=== PATIENT | female | born 1945 | race Caucasian/White ===

== ENCOUNTER → 2019-09-12 09:26 | Outpatient (BNVA) | payer MEDICARE, OTHER, SELFPAY | PROVIDERS: Family Provider Internal Medicine; PCP Internal Medicine; Visit Provider Specialist | DX: M79.641 Pain in right hand (principal); M18.9 Osteoarthritis of first carpometacarpal joint, unspecified; S52.502A Unspecified fracture of the lower end of left radius, initial encounter for closed fracture; X58.XXXA Exposure to other specified factors, initial encounter | CPT/HCPCS: 73130 ==

== ENCOUNTER 2019-09-12 16:22 | Outpatient (CLI) | payer MEDICARE, OTHER, SELFPAY | END 2019-09-12 16:23 | disposition home or self-care (01) | LOC: SPT 16:23 | PROVIDERS: Family Provider Internal Medicine; PCP Internal Medicine; Visit Provider Specialist | DX: M18.0 Bilateral primary osteoarthritis of first carpometacarpal joints (principal) | CPT/HCPCS: L3924 ==

== ENCOUNTER 2019-09-12 18:12 | Emergency (ER) | payer MEDICARE, OTHER, SELFPAY ==
[2019-09-12 18:17] VITALS: BP 135/85; PULSE 90; RESP 16; TEMP 36.6; O2SAT 95; BMI 25.9
--- NOTE | 2019-09-12 18:31 | XR_ITS ---
WS: [id number] Left wrist, 3 views, 09/12/2019, 1915 hours. Clinical Data: injury Comparison: Left wrist 3 views, 09/12/2019, 0935 hours. Findings: There is a fracture of the radial styloid, and no displacement is seen. No distal ulnar fracture is n oted. The carpal bones and metacarpals remain intact. Calcification in the hernández of the small arterie s again is seen. XR/XR wrist LT min 3V* [id number] Impression: Fracture of the left distal radius.
--- NOTE | 2019-09-12 19:46 | ED_ITS ---
HPI - Extremity Problem General: Chief complaint: Extremity Injury, Upper Stated complaint: Arm pain Time Seen by Provider: 09/12/19 19:26 History of Present Illness: HPI Narrative: Patient complains about left wrist pain after a fall about 1 hour ago. Tripped MD Complaint: extremity pain and extremity swelling Onset (ago): hour(s) Pain Consistency: constant Location: left and other (Wrist) Severity scale (1-10): 5 Associated symptoms: Deny chest pain, fever(s) or rash Review of Systems Const: Denies: fever, chills or body aches Eyes: Denies: change in vision or blurry vision ENMT: Denies: throat pain or nasal congestion Card: Denies: chest pain or shortness of breath on exertion Resp: Denies: shortness of breath, productive cough or non-productive cough GI: Denies: abdominal pain, nausea or vomiting Musc: Reports: extremity pain (Left wrist) and extremity swelling Skin/Breast: Denies: rash Neuro: Denies: headache Psych: Denies: anxiety or depression Robert/Lymph: Denies: easy bruising PFSH ED PFSH: Statuses (acute, chronic, etc) shown below reflect problem list status as previously entered and may not be historically accurate Social History (Updated 09/12/19 @ 09:47 by Mily Cali LPN) Smoking and tobacco status: never smoked Alcohol intake: former Physical Exam Const: COMMON NORMALS: no apparent distress, average body habitus and oriented x3 HENMT: COMMON NORMALS: normocephalic HEAD & SCALP: normal to inspection and normocephalic FACE & SINUS: normal facial exam Eye: COMMON NORMALS: conjunctivae normal GENERAL EYE: normal appearance of both eyes CONJUNCTIVA: Yes conjunctivae normal Neck/C-Spine: COMMON NORMALS: no JVD Chest: COMMONS NORMALS: inspection of chest normal Resp: COMMON NORMALS: normal respiratory effort and clear to auscultation bilaterally AUSCULTATION: clear to auscultation bilaterally Cardio: COMMON NORMALS: no JVD, regular rate and regular rhythm RATE: regular rate RHYTHM: regular rhythm GI: COMMON NORMALS: normal to inspection, nondistended, normoactive bowel so unds Extremity: COMMON NORMALS: normal to inspection and full ROM LEFT UPPER EXTREMITY: Yes wrist (Pain and swelling to left wrist radial site. Neurovascular intact.) Left wrist: Yes inspection EXTREMITY IMAGE (FRONT): 1. pain and swelling Neuro: COMMON NORMALS: oriented x3 Course Vital Signs: Vital signs: Vital Signs Temperature 97.9 F 09/12/19 18:17 Pulse Rate 90 09/12/19 18:17 Respiratory Rate 16 09/12/19 18:17 Blood Pressure 135/85 09/12/19 18:17 Pulse Oximetry 95 09/12/19 18:17 Discharge Plan Discharge Patient Disposition: Home, Self-Care Clinical Impression: Fracture of wrist Condition: Stable Prescriptions: No Action Trulicity 0.75 mg/0.5 mL pen injector 0.75 mg SUBCUT ONCE RF: 0 atorvastatin [Lipitor] 80 mg tablet 80 mg PO ONCE RF: 0 aspirin [Adult Aspirin Regimen] 81 mg tablet,delayed release (DR/EC) 81 mg PO ONCE RF: 0 amlodipine 10 mg tablet 10 mg PO ONCE RF: 0 hydrochlorothiazide 25 mg tablet 25 mg PO QAM RF: 0 clopidogrel [Plavix] 75 mg tablet 75 mg PO ONCE RF: 0 levothyroxine [Synthroid] 125 mcg tablet 125 mcg PO ONCE RF: 0 metformin 500 mg tablet 500 mg PO BID RF: 0 Humulin 70/30 U-100 Insulin 100 unit/mL (70-30) suspension See Rx Instructions SUBCUT QAM RF: 0 isosorbide mononitrate 30 mg tablet extended release 24 hr 30 mg PO QAM RF: 0 Lumigan 0.01 % drops 1 drop ophthalmic (eye) ONCE RF: 0 pantoprazole 20 mg tablet,delayed release (DR/EC) 20 mg PO ONCE RF: 0 ranitidine HCl [Zantac] 150 mg tablet 150 mg PO BID RF: 0 tramadol 50 mg tablet 50 mg PO BID PRNRF: 0 (DME) CMC BRACES Qty: 1 RF: 0 Referrals: Isis Villasenor MD [Primary Care Provider] - Coding Level of Care Code ED Locker Room Manager for Cholo Ruelas
[2019-09-12 19:52] VITALS: PULSE 88
[2019-09-12 20:14] VITALS: BP 142/71; PULSE 84; RESP 16; O2SAT 98
--- NOTE | 2019-09-13 11:07 | DCPLANNER ---
senior benefits manager had message to schedule a follow up appointment for patient with ortho. senior benefits manager called the ortho clinic, spoke with Pat, gave clinic patients information. senior benefits manager was told that patients information would be printed and reviewed. Clinic will call patient case coordinator and patient with appointment information.
--- NOTE | 2019-09-14 12:29 | DCPLANNER ---
Appointment was scheduled for 09.14.[address] Gomes, patient attended appointment.
== END 2019-09-12 20:16 | disposition home or self-care (01) ==
PROVIDERS: Emergency Provider Nurse Practitioner Family; Family Provider Internal Medicine; PCP Internal Medicine
DX: S52.515A Nondisplaced fracture of left radial styloid process, initial encounter for closed fracture (principal); W19.XXXA Unspecified fall, initial encounter; Z79.4 Long term (current) use of insulin; Z79.02 Long term (current) use of antithrombotics/antiplatelets; Z79.82 Long term (current) use of aspirin; M79.641 Pain in right hand; S52.502A Unspecified fracture of the lower end of left radius, initial encounter for closed fracture; X58.XXXA Exposure to other specified factors, initial encounter
CPT/HCPCS: 73110; 73130; 99281; L3924

== ENCOUNTER 2019-09-14 13:04 | Outpatient (CLI) | payer MEDICARE, OTHER, SELFPAY | END 2019-09-14 13:05 | disposition home or self-care (01) | LOC: SPT 13:04 | PROVIDERS: Family Provider Internal Medicine; PCP Internal Medicine; Visit Provider Specialist | DX: S52.501D Unspecified fracture of the lower end of right radius, subsequent encounter for closed fracture with routine healing (principal); X58.XXXD Exposure to other specified factors, subsequent encounter | CPT/HCPCS: L3982 ==

== ENCOUNTER → 2019-09-28 08:58 | Outpatient (BNVA) | payer MEDICARE, OTHER, SELFPAY | PROVIDERS: Family Provider Internal Medicine; PCP Internal Medicine; Visit Provider Specialist | DX: S52.501A Unspecified fracture of the lower end of right radius, initial encounter for closed fracture (principal); X58.XXXA Exposure to other specified factors, initial encounter | CPT/HCPCS: 73110 ==

== ENCOUNTER → 2019-10-12 08:15 | Outpatient (BNVA) | payer MEDICARE, OTHER, SELFPAY | PROVIDERS: Family Provider Internal Medicine; PCP Internal Medicine; Visit Provider Specialist | DX: S52.502A Unspecified fracture of the lower end of left radius, initial encounter for closed fracture (principal); X58.XXXA Exposure to other specified factors, initial encounter | CPT/HCPCS: 73110 ==

== ENCOUNTER 2019-10-25 11:59 | Outpatient (RCR) | payer MEDICARE, OTHER, SELFPAY | END 2019-10-29 23:59 | disposition home or self-care (01) | LOC: SOT 11:59 | PROVIDERS: Family Provider Internal Medicine; PCP Internal Medicine; Referring Provider Specialist; Visit Provider Specialist | DX: S52.502D Unspecified fracture of the lower end of left radius, subsequent encounter for closed fracture with routine healing (principal); X58.XXXD Exposure to other specified factors, subsequent encounter | CPT/HCPCS: 97110; 97165 ==

== ENCOUNTER 2019-10-30 06:00 | Outpatient (RCR) | payer MEDICARE, OTHER, SELFPAY | END 2019-11-10 23:00 | disposition home or self-care (01) | LOC: SOT 06:00 | PROVIDERS: Family Provider Internal Medicine; PCP Internal Medicine; Referring Provider Specialist; Visit Provider Specialist | DX: S52.502D Unspecified fracture of the lower end of left radius, subsequent encounter for closed fracture with routine healing (principal); X58.XXXD Exposure to other specified factors, subsequent encounter | CPT/HCPCS: 97018; 97035; 97110; 97530 ==

== ENCOUNTER 2019-11-02 08:18 | Outpatient (CLI) | payer MEDICARE, OTHER, SELFPAY | END 2019-11-02 08:19 | disposition home or self-care (01) | LOC: RADSHAW 14:40 | PROVIDERS: Family Provider Internal Medicine; PCP Internal Medicine; Visit Provider Specialist | DX: S52.501A Unspecified fracture of the lower end of right radius, initial encounter for closed fracture (principal); S52.502A Unspecified fracture of the lower end of left radius, initial encounter for closed fracture; X58.XXXA Exposure to other specified factors, initial encounter | CPT/HCPCS: 73110 ==

== ENCOUNTER → 2019-12-02 14:37 | Outpatient (BNVA) | payer MEDICARE, OTHER, SELFPAY | PROVIDERS: Family Provider Internal Medicine; PCP Internal Medicine; Visit Provider Nurse Practitioner Family | DX: S52.92XA Unspecified fracture of left forearm, initial encounter for closed fracture (principal); X58.XXXA Exposure to other specified factors, initial encounter | CPT/HCPCS: 73110 ==

== ENCOUNTER 2020-02-01 13:08 | Outpatient (CLI) | payer MEDICARE, OTHER, SELFPAY ==
--- NOTE | 2020-02-01 13:15 | MM_ITS ---
WS: [id number] BILATERAL SCREENING DIGITAL MAMMOGRAM WITH CAD HISTORY: SCREENING COMPARISON: 03/08/2018 and 12/10/2016 Bilateral CC and MLO views submitted. Computer aided detection analyzed. Breast composition: There are scattered areas of fibroglandular density. No suspicious masses, microc alcifications or architectural distortion. Extensive calcifications throughout both breasts which hav e been stable over multiple years. Extensive vascular calcifications also. MM/[place] [id number] IMPRESSION: BI-RADS: 2-Benign FOLLOW UP: 1 Year Follow-up
--- NOTE | 2020-02-01 13:46 | XR_ITS ---
WS: [id number] DEXA (DUAL ENERGY X-RAY ABSORPTIOMETRY) Bone mineral density was performed using a Veebox machine. HISTORY: ASYMPTOMATIC POSTMENOPAUSAL COMPARISON: None available. Lumbar spine BMD (L1-L4): 0.975 g/cm2 T score: -1.7 Z score: 0.2 Total hip BMD: Left: 0.671 g/cm2. T score: -2.7 Z score: -0.9 Right: 0.702 g/cm2. T score: -2.4 Z score: -0.6 10 year probability of a major osteoporotic fracture is 33%. XR/XR DEXA axial skeleton* [id number] IMPRESSION: OSTEOPOROSIS based upon the WHO classification for females.
== END 2020-02-01 13:09 | disposition home or self-care (01) ==
LOC: RADSHAW 13:11
PROVIDERS: PCP Internal Medicine; Visit Provider Internal Medicine
DX: Z12.31 Encounter for screening mammogram for malignant neoplasm of breast (principal); Z78.0 Asymptomatic menopausal state; M81.0 Age-related osteoporosis without current pathological fracture
CPT/HCPCS: 77067; 77080

== ENCOUNTER 2020-03-24 08:58 | Emergency (ER) | payer MEDICARE, OTHER, SELFPAY ==
[2020-03-24 09:05] VITALS: BP 167/87; PULSE 89; RESP 18; TEMP 36.8; O2SAT 97; BMI 26.4
--- NOTE | 2020-03-24 09:14 | XRR_ITS ---
PROCEDURE INFORMATION: Exam: XR Left Shoulder Exam date and time: 03/24/2020 9:32 AM Age: 74 years old Clinical indication: Injury or trauma; Fall; Initial encounter; Blunt trauma (contusions or hematomas; Shoulder; Left TECHNIQUE: Imaging protocol: XR Left shoulder. Views: 2 or more views. COMPARISON: No relevant prior studies available. FINDINGS: Bones/joints: Poststernotomy changes in the chest are partially visualized. No acute fracture. No dislocation. Bones are mildly osteopenic. No joint effusion. Lungs: Visualized lungs are clear. Vasculature: Vascular calcifications in the aorta. Soft tissues: No soft tissue swelling. No radiopaque foreign body. XR/XR shoulder LT min 2V* [id number] IMPRESSION: 1. No acute fracture. Followup imaging recommended in 7-14 days if clinical concern for fracture persists. 2. Incidental/nonacute findings are listed in the report.
--- NOTE | 2020-03-24 09:14 | XRR_ITS ---
PROCEDURE INFORMATION: Exam: XR Left Wrist Exam date and time: 03/24/2020 9:48 AM Age: 74 years old Clinical indication: Injury or trauma; Fall; Initial encounter; Blunt trauma (contusions or hematomas; Wrist; Left TECHNIQUE: Imaging protocol: XR Left wrist. Views: 3 or more views. COMPARISON: CR XR wrist LT min 3V* [id number] 12/02/2019 2:50 PM FINDINGS: Bones/joints: There is an old old mildly impacted fracture of the distal left radius. No acute fracture. No dislocation. Bones are diffusely osteopenic. Degenerative changes at the radiocarpal joint and 1st CMC joint. Osseous findings are stable. No acute fracture. Soft tissues: No soft tissue swelling. No radiopaque foreign body. Vasculature: Stable atherosclerotic calcifications in the visualized arteries. XR/XR wrist LT min 3V* [id number] IMPRESSION: 1. No acute fracture. Followup imaging recommended in 7-14 days if clinical concern for fracture persists. 2. Incidental/nonacute findings are listed in the report.
--- NOTE | 2020-03-24 09:14 | XRR_ITS ---
PROCEDURE INFORMATION: Exam: XR Right Wrist Exam date and time: 03/24/2020 9:46 AM Age: 74 years old Clinical indication: Injury or trauma; Fall; Initial encounter; Blunt trauma (contusions or hematomas; Wrist; Right TECHNIQUE: Imaging protocol: XR Right wrist. Views: 3 or more views. COMPARISON: CR XR hand RT min 3V* [id number] 09/12/2019 9:31 AM FINDINGS: Bones/joints: No acute fracture. No dislocation. Degenerative changes at the radiocarpal joint and the 1st CMC joint. Bones are diffusely osteopenic. Osseous findings are stable. Soft tissues: No soft tissue swelling. No radiopaque foreign body. Vasculature: Stable atherosclerotic calcifications in the visualized arteries. XR/XR wrist RT min 3V* [id number] IMPRESSION: 1. No acute fracture. Followup imaging recommended in 7-14 days if clinical concern for fracture persists. 2. Incidental/nonacute findings are listed in the report.
--- NOTE | 2020-03-24 09:14 | XRR_ITS ---
PROCEDURE INFORMATION: Exam: XR Left Elbow Exam date and time: 03/24/2020 9:32 AM Age: 74 years old Clinical indication: Injury or trauma; Fall; Initial encounter; Blunt trauma (contusions or hematomas; Elbow; Left TECHNIQUE: Imaging protocol: XR Left elbow. Views: 1 or 2 views. COMPARISON: No relevant prior studies available. FINDINGS: Bones/joints: No acute fracture. No dislocation. Bones are mildly osteopenic. No joint effusion. Soft tissues: No soft tissue swelling. No radiopaque foreign body. XR/XR elbow LT 2V [id number] IMPRESSION: 1. No acute fracture. Followup imaging recommended in 7-14 days if clinical concern for fracture persists. 2. Incidental/nonacute findings are listed in the report.
[2020-03-24 09:15] VITALS: BP 167/87; PULSE 84; RESP 16; O2SAT 95
--- NOTE | 2020-03-24 09:15 | XRR_ITS ---
PROCEDURE INFORMATION: Exam: XR Right Hand Exam date and time: 03/24/2020 9:36 AM Age: 74 years old Clinical indication: Injury or trauma; Fall; Initial encounter; Blunt trauma (contusions or hematomas; Hand; Right TECHNIQUE: Imaging protocol: XR Right hand. Views: 3 or more views. COMPARISON: CR XR hand RT min 3V* [id number] 09/12/2019 9:31 AM FINDINGS: Bones/joints: Degenerative changes at the radiocarpal joint, 1st CMC joint, and multiple interphalangeal joints. No acute fracture. No dislocation. Bones are diffusely osteopenic. Osseous findings are stable. Soft tissues: No soft tissue swelling. No radiopaque foreign body. Vasculature: Stable atherosclerotic calcifications in the visualized arteries. XR/XR hand RT min 3V* [id number] IMPRESSION: 1. No acute fracture. Followup imaging recommended in 7-14 days if clinical concern for fracture persists. 2. Incidental/nonacute findings are listed in the report.
--- NOTE | 2020-03-24 09:30 | PC.NURSE ---
XRs performed at bedside.
--- NOTE | 2020-03-24 09:55 | PC.NURSE ---
Volar splint applied to left wrist. Pt tolerated well.
--- NOTE | 2020-03-24 10:06 | W.ED.FALL ---
HPI - Fall General: Chief Complaint: Fall Stated Complaint: FALL Time Seen by Provider: 03/24/20 09:13 History of Present Illness: HPI Narrative: 74-year-old female who stumbled and fell she was using a cane going up some stairs she landed on outstretched hand she has bilateral wrist pain with some right elbow and shoulder pain. MD complaint: fall Onset (ago): day(s) (1) Fall from: standing Fall witnessed: no Place fall occurred: home Loss of consciousness: None Prolonged down time: no Symptoms prior to fall: none Context: tripped/slipped Location of injury - extremities: Left: shoulder and elbow and Bilateral: hand (wrist) Severity: moderate Quality: sharp Associated symptoms-after fall: Denies abdominal pain, chest pain, difficulty walking, headache(s), lightheadedness or neck pain Review of Systems Const: Denies: fever(s), chills, body aches, change in appetite, fatigue or malaise ENMT: Denies: throat pain, ear or mastoid pain, nasal discharge or nasal congestion Card: Denies: chest pain or lightheadedness Resp: Denies: dyspnea, productive cough or non-productive cough GI: Denies: abdominal pain : Denies: flank pain, difficulty voiding, dysuria, urinary frequency or urinary urgency Musc: Denies: neck pain Skin/Breast: Denies: rash or pruritus Neuro: Denies: headache(s) or difficulty walking PFS ED PFSH: Medical History Bilateral carotid artery stenosis CAD (coronary artery disease) Chronic kidney disease, stage 3 Diabetes mellitus Hypertension Leg pain, bilateral Mixed hyperlipidemia Osteoarthritis of knees, bilateral Osteoarthritis, chronic Peripheral vascular disease Surgical History H/O heart bypass surgery Family History Other CAD (coronary artery disease) Diabetes Social History Smoking and tobacco status: never smoked Alcohol intake: former Physical Exam Const: COMMON NORMALS: no acute distress GENERAL APPEARANCE: cooperative and comfortable ORIENTATION/CONSCIOUSNESS: Yes awake, Yes oriented to person, Yes oriented to place and Yes oriented to time HENMT: COMMON NORMALS: normocephalic, atraumatic, hearing grossly normal bilaterally, external ears normal, EAC's normal, TM's normal bilaterally, Normal nasal mucous membranes and turbinates present, moist oral mucous membranes and oropharynx normal HEAD & SCALP: normocephalic and atraumatic NOSE: Normal nasal mucous membranes and turbinates present EXTERNAL EAR: Yes external ears normal EXTERNAL AUDITORY CANAL: EAC's normal TYMPANIC MEMBRANE: TM's normal bilaterally Eye: COMMON NORMALS: Equal, round and reactive pupils present, EOMs intact bilaterally, conjunctivae normal and no scleral icterus CONJUNCTIVA: Yes conjunctivae normal PUPIL: Yes Equal, round and reactive pupils present Neck/C-Spine: COMMON NORMALS: full ROM, no lymphadenopathy, supple and no JVD Lymph: LYMPHATIC: no lymphadenopathy noted and no lymphedema noted Resp: COMMON NORMALS: normal respiratory effort, No retractions, No use of accessory muscles and clear to auscultation bilaterally AUSCULTATION: clear to auscultation bilaterally Cardio: COMMON NORMALS: no JVD, regular rate, regular rhythm and No murmurs present (Cardio) RATE: regular rate RHYTHM: regular rhythm GI: COMMON NORMALS: Soft to palpation and No hepatosplenomegaly present AUSCULTATION: Yes normoactive bowel sounds PALPATION: Yes Soft to palpation, No Tenderness to palpation present (GI), No Guarding due to palpation present (GI) and Yes No hepatosplenomegaly present Neuro: SENSORIUM/ORIENTATION: Yes oriented to person, Yes oriented to place and Yes oriented to time Skin: COMMON NORMALS: no rashes or lesions noted GENERAL SKIN EXAM: no rashes or lesions noted Course Vital Signs: Vital signs: Vital Signs Temperature 98.2 F 03/24/20 09:05 Pulse Rate 81 03/24/20 10:24 Respiratory Rate 17 03/24/20 10:24 Blood Pressure 147/86 03/24/20 10:24 Pulse Oximetry 95 03/24/20 10:24 MDM - Fall MDM Narrative: Medical decision making narrative: Left distal radial fracture. In the same area as the previous 1 but comparing the films to last August it does look different than the previous fracture. We will go ahead and put her in a volar splint and a sling pain medications and refer her to orthopedics. I do not see anything in the shoulder the navicular views of the left wrist or left elbow films. 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 Condition: Stable Prescriptions: No Action hydrochlorothiazide 25 mg tablet 25 mg PO QAM RF: 0 metformin 500 mg tablet 500 mg PO BID RF: 0 Humulin 70/30 U-100 Insulin 100 unit/mL (70-30) suspension See Rx Instructions SUBCUT QAM RF: 0 isosorbide mononitrate 30 mg tablet extended release 24 hr 30 mg PO QAM RF: 0 ranitidine HCl [Zantac] 150 mg tablet 150 mg PO BID RF: 0 tramadol 50 mg tablet 50 mg PO BID PRNRF: 0 (DME) [facility] BRACES Qty: 1 RF: 0 amlodipine 10 mg tablet 10 mg PO QDAY RF: 0 aspirin [Adult Aspirin Regimen] 81 mg tablet,delayed release (DR/EC) 81 mg PO QDAY RF: 0 atorvastatin [Lipitor] 80 mg tablet 80 mg PO QDAY RF: 0 Lumigan 0.01 % drops 1 drop ophthalmic (eye) QDAY RF: 0 clopidogrel [Plavix] 75 mg tablet 75 mg PO QDAY RF: 0 levothyroxine [Synthroid] 125 mcg tablet 125 mcg PO QDAY RF: 0 pantoprazole 20 mg tablet,delayed release (DR/EC) 20 mg PO QDAY RF: 0 Trulicity 0.75 mg/0.5 mL pen injector 0.75 mg SUBCUT .weekly RF: 0 (DME) FAST FORM THUMB SPICA SPLINT Qty: 1 RF: 0 hydrocodone-acetaminophen 5-325 mg tablet 0.5 tab PO Q8H Qty: 7 RF: 0 Discharge Orders: Discharge Order (Routine); Ordered 03/24/20 Ordered By: Justin Martinez Referrals: Isis Villasenor MD [Primary Care Provider] - Discharge Diet: Advance as tolerated Discharge Activity: Resume usual activity Discharge Date/Time: 03/24/20 10:25 Coding Level of Care Code ED Faculty Neuropsychologist for Chg Fwd Exam Comprehensive
[2020-03-24 10:24] VITALS: BP 147/86; PULSE 81; RESP 17; O2SAT 95
--- NOTE | 2020-03-26 10:14 | PC.SOCIAL ---
Spoke with Pat at [facility] regarding referral. She will have provider review and call patient with appt. If unable to schedule appt she will notify this nurse.
--- NOTE | 2020-04-04 10:53 | DCPLANNER ---
Patient had a follow up appointment scheduled for 03.28.20 with ortho. Patient did attend the appointment.
== END 2020-03-24 10:25 | disposition home or self-care (01) ==
PROVIDERS: Emergency Provider Family Medicine; PCP Internal Medicine
DX: S52.502A Unspecified fracture of the lower end of left radius, initial encounter for closed fracture (principal); M81.0 Age-related osteoporosis without current pathological fracture; I70.208 Unspecified atherosclerosis of native arteries of extremities, other extremity; Z79.02 Long term (current) use of antithrombotics/antiplatelets; Z79.82 Long term (current) use of aspirin; Z79.4 Long term (current) use of insulin; I25.10 Atherosclerotic heart disease of native coronary artery without angina pectoris; I12.9 Hypertensive chronic kidney disease with stage 1 through stage 4 chronic kidney disease, or unspecified chronic kidney disease; E11.22 Type 2 diabetes mellitus with diabetic chronic kidney disease; N18.3 Chronic kidney disease, stage 3 (moderate); E78.2 Mixed hyperlipidemia; W01.0XXA Fall on same level from slipping, tripping and stumbling without subsequent striking against object, initial encounter
CPT/HCPCS: 12345; 29125; 73030; 73070; 73110; 73130; 99282; 99283

== ENCOUNTER 2020-03-28 11:22 | Outpatient (CLI) | payer MEDICARE, OTHER, SELFPAY | END 2020-03-28 11:23 | disposition home or self-care (01) | LOC: SPT 11:23 | PROVIDERS: PCP Internal Medicine; Visit Provider Specialist | DX: Z46.89 Encounter for fitting and adjustment of other specified devices (principal); S52.502D Unspecified fracture of the lower end of left radius, subsequent encounter for closed fracture with routine healing; X58.XXXD Exposure to other specified factors, subsequent encounter | CPT/HCPCS: 97760; L3982 ==

== ENCOUNTER → 2020-04-18 10:00 | Outpatient (BNVA) | payer MEDICARE, OTHER, SELFPAY | PROVIDERS: PCP Internal Medicine; Visit Provider Specialist | DX: S52.502D Unspecified fracture of the lower end of left radius, subsequent encounter for closed fracture with routine healing (principal); S52.501D Unspecified fracture of the lower end of right radius, subsequent encounter for closed fracture with routine healing; M18.11 Unilateral primary osteoarthritis of first carpometacarpal joint, right hand; X58.XXXD Exposure to other specified factors, subsequent encounter | CPT/HCPCS: 73130 ==

== ENCOUNTER → 2020-05-09 08:04 | Outpatient (BNVA) | payer MEDICARE, OTHER, SELFPAY | PROVIDERS: PCP Internal Medicine; Visit Provider Specialist | DX: S52.572D Other intraarticular fracture of lower end of left radius, subsequent encounter for closed fracture with routine healing (principal); W10.2XXD Fall (on)(from) incline, subsequent encounter; M18.0 Bilateral primary osteoarthritis of first carpometacarpal joints | CPT/HCPCS: 73110 ==

== ENCOUNTER 2020-05-14 08:48 | Outpatient (RCR) | payer MEDICARE, OTHER, SELFPAY | END 2020-05-14 23:00 | disposition home or self-care (01) | LOC: SOT 08:48 | PROVIDERS: PCP Internal Medicine; Referring Provider Specialist; Visit Provider Specialist | DX: M18.0 Bilateral primary osteoarthritis of first carpometacarpal joints (principal) | CPT/HCPCS: 97165 ==

== ENCOUNTER 2020-06-18 12:20 | Outpatient (CLI) | payer MEDICARE, OTHER, SELFPAY ==
--- NOTE | 2020-06-18 12:45 | USCV_ITS ---
Marry Chatman Age: 74 Gender: F : 1945 Exam Date: 06/18/2020 12:41 Ordering Phys: Afsaneh Randall MD ([email or web address]) Technologist: Clemencia Olivia [place] [facility] [place]: PAD Risk Factors: Previous Vascular Surgery: RIGHT LEFT Waveform Velocity (cm/s) Velocity (cm/s) Waveform Monophasic Iliac Prox Biphasic 69.1 70.2 Biphasic 60.9 Iliac Mid 77.2 Biphasic Biphasic 61.4 Iliac Distal 84.2 Biphasic Triphasic 172.9 METAL ROOM DENTAL TECHNICIAN 100.2 Biphasic Biphasic 40.5 SFA Prox 58.7 Biphasic Triphasic 66.3 SFA Mid 21.1 Biphasic Biphasic 43.7 SFA Dist 19.1 Monophasic Biphasic 35.9 POP 42.7 Biphasic POST FRAMER 24.5 Monophasic DPA 22.6 Monophasic ALIDA 0.8 FINDINGS COULD NOT OBTAIN RIGHT POST FRAMER AND RT DPA VELOCITIES Moderate dense diffuse plaques in the iliac and femoral artery on the right side. No Doppler flow signals in the posterior tibial and dorsalis pedis artery on the right side Abnormal resting ALIDA on the left side CONCLUSIONS 1. Abnormal resting ALIDA, suggestive of mild arterial disease on the left side. 2. 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
--- NOTE | 2020-06-18 13:30 | USCV_ITS ---
Marry Chatman Age: 74 Gender: F : 1945 Exam Date: 06/18/2020 12:57 Ordering Phys: Afsaneh Randall MD ([email or web address]) Technologist: Clemencia Olivia Exam Location: [facility] [place] Indication: STENOSIS Risk Factors: Previous Vascular Surgery: Right Brachial BP: / Left Brachial BP: / Right Left Velocity (cm/s) Spectral Plaque Velocity (cm/s) Spectral Plaque Syst/Diast Broadening Syst/Diast Broadening 53.80/ 16.40 Prox CCA 53.50 / 9.40 56.90/ 12.50 Mid CCA 41.30 / 7.50 46.80/ 11.70 Distal CCA 46.90 / 7.50 98.20/ 31.90 Prox ICA 41.30 / 11.30 116.10/37.00 Mid ICA 46.00 / 15.00 126.60/30.80 Distal ICA 45.00 / 9.40 99.50 ECA 81.60 2.22 ICA/CCA 1.11 Antegrade Vertebral Antegrade 54.40/ 12.20 cm/s 57.20/ 13.10 cm/s Tri Subclavian Tri 63.80 80.70 FINDINGS Moderate dense plaques at the right bifurcation and proximal internal carotid artery Minimal plaques of the left bifurcation internal carotid artery Intimal thickening in the common carotid arteries bilaterally. Antegrade flow in the vertebral arteries bilaterally. Normal Doppler flow velocities in the external carotid arteries bilaterally CONCLUSIONS Moderate dense plaques at the right bifurcation and proximal internal carotid artery with velocity elevation consistent with 50 to 79% Minimal plaques at the left bifurcation internal carotid artery Compared to the study from 07/30/2019, there may not be a significant change Dr Afsaneh Randall MD [facility] (Electronically Signed) Final Date: 19 June 2020 09:13 S
== END 2020-06-18 12:21 | disposition home or self-care (01) ==
LOC: RAD 12:25
PROVIDERS: PCP Internal Medicine; Visit Provider Internal Medicine Cardiovascular Disease
DX: I73.9 Peripheral vascular disease, unspecified (principal); I65.23 Occlusion and stenosis of bilateral carotid arteries
CPT/HCPCS: 93880; 93925

== ENCOUNTER 2020-06-22 12:52 | Outpatient (CLI) | payer MEDICARE, OTHER, SELFPAY ==
--- NOTE | 2020-06-22 13:30 | CT_ITS ---
WS: [id number] CT scan of the lower extremity arteries. Additional two-dimensional coronal and sagittal reconstructi on was performed. MIP images were also performed. 06/22/2020 Clinical Data: leg pain Comparison: None. DLP: 1092.[address] scans at [facility] use at least one of these dose optimization techniques: automat ed exposure control; mA and/or kV adjustment per patient size (includes targeted exams where dose is matched to clinical indication); or iterative reconstruction. Findings: Arterial findings: The abdominal aorta bifurcates into the common iliac arteries and then flows distally into the femora l arteries. The superficial femoral arteries show atherosclerotic change with significant stenosis. T he left superficial femoral artery shows an area of stenosis of 90.6%. The right superficial femoral artery shows a significant area of stenosis 84.9%. Bilateral distal superficial femoral artery stents are seen and they are patent. Bilateral knee arthroplasties obscure detail of the popliteal arteries . The arteries of the trifurcations are patent. The posterior tibial arteries do show flow into the ankles and feet of both extremities. Soft tissue findings of the pelvis: The bladder is not remarkable. The visualized small bowel and colon show no abnormalities. The uterus is absent. The bones of the pelvis demonstrate no abnormalities. The hips are unremarkable. CT/[place] [id number] Impression: 1. Atherosclerotic narrowing of the superficial femoral arteries with the steno sis on the left 90.6% and on the right 84.9%. 2. Distal superficial femoral artery stents are patent. 3. Arterial flow in the posterior tibial arteries is seen into the ankles and f eet bilaterally.
[2020-06-22] MEDS: iodixanol 320 mg/mL 100mL Btl IV (13:50)
== END 2020-06-22 12:53 | disposition home or self-care (01) ==
LOC: RADWPI 12:56
PROVIDERS: Family Provider Internal Medicine; PCP Internal Medicine; Visit Provider Internal Medicine Cardiovascular Disease
DX: M79.604 Pain in right leg (principal); M79.605 Pain in left leg; I70.203 Unspecified atherosclerosis of native arteries of extremities, bilateral legs
CPT/HCPCS: 73706; Q9967

== ENCOUNTER → 2020-07-05 09:30 | Outpatient (BNVA) | payer MEDICARE, OTHER, SELFPAY | PROVIDERS: PCP Internal Medicine; Visit Provider Internal Medicine Cardiovascular Disease | DX: Z11.59 Encounter for screening for other viral diseases (principal) | CPT/HCPCS: 87635 ==

== ENCOUNTER 2020-07-09 11:36 | Observation (INO) | payer MEDICARE, OTHER, SELFPAY ==
[2020-07-09] VITALS (43 sets, daily range): BP systolic 85–133; BP diastolic 45–94; PULSE 67–93; RESP 12–31; TEMP 36.3–36.9; O2SAT 6–98; BMI 27.6
[2020-07-09] MEDS: diphenhydrAMINE 50 mg Capsule PO (07:50)
[2020-07-09 08:25] LABS: Basophils % 0.6 %; Eosinophils # 0.2 10^3/uL (0.0-0.8); Eosinophils % 2.3 %; Hematocrit 33.1 % (37.0-47.0); Hemoglobin 10.5 g/dL (11.5-15.3); Lymphocytes # 1.5 10^3/uL (0.8-4.8); Lymphocytes % 23.4 %; Mean Corpuscular HGB Conc 31.7 g/dL (30.0-36.0); Mean Corpuscular Hemoglobin 27.6 pg (28.0-34.0); Mean Corpuscular Volume 86.9 fL (81-99); Mean Platelet Volume 9.2 fL (7.4-10.4); Monocytes # 0.7 10^3/uL (0.2-0.9); Monocytes % 10.2 %; Neutrophils # 4.08 10^3/uL (1.8-7.7); Neutrophils % 62.7 %; Nucleated Red Blood Cells % 0 %; Platelet Count 496 10^3/cmm (130-400); Red Blood Count 3.81 10^6/uL (4.1-5.3); Red Cell Distribution Width 14.7 % (12.1-15.1); White Blood Count 6.5 10^3/uL (4.0-10.0)
--- NOTE | 2020-07-09 08:30 | XACV_ITS ---
Ht: 150 cm Wt: 62 kg BSA: 1.63 m2 Any Known Allergies: Other Gender: Female : 1945 Exam Type: Invasive Peripheral Vascular - Dual [place] Procedure(s): Procedure Description: Peripheral Cath Diagnostic Procedure Procedure Description: Abdominal aortic angiography Procedure Description: Lower extremities' angiography Procedure Description: Peripheral vascular Intervention Procedure Description: PV Balloon Exam Priority: Routine Abdominal Diagnostic Findings Abdominal aortogram was performed by placing a short pigtail catheter at the level of the L1 vertebrae. Patient was taken in the anteroposterior view. Abdominal aorta was found to have moderate diffuse calcification. Both renal arteries were identified and found to be patent. The right renal artery was found to have around 50% ostial narrowing. Right kidney appears to be relatively small size. The inferior mesenteric artery was found to be widely patent. The superior mesenteric artery also was found to be widely patent with no significant stenotic lesions. The distal abdominal aorta bifurcates to the right and left common iliac arteries. The proximal common iliac arteries also were found to have moderate diffuse calcification. Lower Extremity Diagnostic Findings The right iliac angiogram with runoff was performed in the AP view after selectively engaging the right common iliac artery with a crossover catheter. The internal iliac and the external iliac arteries were found to have no significant stenotic lesions. Right at the takeoff of the profunda femoral artery, the common femoral artery was found to have high-grade eccentric narrowing with extensive calcification. The superficial femoral artery was found to have mild to moderate diffuse disease. The stented segment of the mid to distal superficial femoral artery was found to be patent with mild to moderate in-stent stenosis. The popliteal artery was found to have mild to moderate diffuse disease. The proximal segments of the trifurcation branches were noted. All the trifurcation branches are found to be occluded proximally. There is some reconstitution of the distal segment of the peroneal artery above the ankle. Some bridging collaterals were noted from the geniculate branches. Left iliac angiogram with runoff was performed by injecting into the left femoral artery sheath and the pictures were taken in the AP view. The internal and external iliac arteries were found to be patent. The ostium of the common femoral artery was found to have around 50 to 60% stenosis. A tandem lesion of 60% was noted just below the ostium. The long stented segment of the based on the results of the above and patient's clinical progress, further recommendations will be made Thank you for the opportunity to evaluate this patient and make these recommendations superficial femoral artery was found to be totally occluded. The proximal superficial femoral artery was found to have moderate diffuse narrowing. The distal superficial femoral artery was reconstituted above the knee. Popliteal artery was found to have mild to moderate diffuse disease. Peroneal branch was found to have mild to moderate disease proximally. The artery extends up to the ankle. The antitibial and the posterior tibial arteries were found to be occluded proximally. There is some reconstitution of the distal anterior tibial artery at the ankle. Lower Extremity Interventional Findings Left common femoral artery approach was adopted to cross the right common femoral artery eccentric moderate to severe stenosis with somewhat difficulty. Multiple balloon angioplasty using Sharon [id number] balloon as described in main body of the report, excellent angiographic results with good flow was achieved. Using seeker catheter we were able to cross into chronically occluded anterior tibial vessel. Multiple balloon angioplasty usingArmada [id number] balloon was performed in proximal to distal anterior tibial vessel with reasonable good result. Two-vessel good runoff was noted below the right knee. For details of the instrument please see the inventory section.. Conclusions 74-year-old white female with history of peripheral artery disease, status post previous percutaneous intervention, now presenting with increasing exertional claudication of the right lower extremity. She has Jyothi's stage IIb symptoms. In view of the ongoing symptoms, in order to further evaluate her peripheral arteries and to decide on further management, peripheral angiogram was recommended. Patient underwent abdominal aortogram and bilateral iliac angiogram with runoff today. The findings are as follows. The abdominal aorta was found to have mild to moderate diffuse calcification. The right common femoral artery was found to have heavy calcification with eccentric narrowing. The stented segment of the superficial femoral artery was found to be patent with mild to moderate diffuse in-stent narrowing. The proximal trifurcation branches of the popliteal artery were visualized. All the infrapopliteal vessels are totally occluded proximally. Some reconstitution of the distal peroneal branch was noted at the ankle. On the left side, the common femoral artery was found to have ostial narrowing of around 60%. The stented segment of the superior femoral artery was totally occluded. There is reconstitution of the distal superficial femoral artery above the knee. Infrapopliteally, there was only 1 vessel runoff to the ankle. The posterior tibial and the antitibial arteries were found to be totally occluded proximally. Some reconstitution of the anterior tibial artery was noted at the ankle. In view of the patient's symptoms, it was thought to be appropriate to consider intervention of the common femoral artery lesion on the right side. I discussed and reviewed the angiogram data with Dr. Bursn. Dr. Burns took over further management this patient at this point. Further details of the intervention, please refer to report. Recommendations 1-Return to inpatient for close monitoring and routine cath care 2-Risk factor modification for secondary prevention 3-Statin and aspirin 81 mg life--long, if tolerated 4-Plavix 75mg p.o. daily for at least three months. 5-Continue optimal medical management 6-Follow up with Dr. anderson in four weeks and your primary care in 10 days . Hemodynamic Data Phase:Rest AO : 106.0 / 64.0 ( 81.0 ) @ 4:18:00 AM 78.0 / 51.0 ( 63.0 ) @ 4:18:00 AM 73.0 / 50.0 ( 61.0 ) @ 4:18:00 AM 116.0 / 59.0 ( 82.0 ) @ 4:30:00 AM 96.0 / 47.0 ( 69.0 ) @ 4:56:00 AM Access Site Site: Left Femoral artery Sheath Size: 6 Fr Hemost... Success: Unsuccessful Procedure Details Findings Procedure Consent Obtained. Pre-Procedure Time Out. Identified patient by full name and date of as verbalized by the patient/guarantor. Does the consent match the physician's order: Yes. Accurate & Complete Informed Consent: Yes. Inpatient/Outpatient History & Physical on Chart: Yes. If H&P is completed, is and addenduem needed: No; If yes, is the addendum complete: N/A. Visualize and Verify Site with Patient/Guarantor: N/A. Relevant Radiology Images available: Yes. Pre-op teaching completed and patient verbalized understanding. The risks, benefits, and alternatives of sedation and/or procedure were discussed by physician. The patient agrees to continue. Procedure started. Correct patient, site and procedure confirmed by cath team. Current diagnosis: PAD. PERRLA. Strong, equal hand package lift operator bilaterally. Lungs clear x 5 lobes. IV Site on Arrival: 18 gauge in the left forearm. IV Fluids: 0.9% NaCl at KVO. 0 mL infused prior to laborer ammunition assembly. Pre Procedural Pulses: right dorsalis pedis was 1+. Pre Procedural Pulses: left dorsalis pedis was Doppled. Pre Procedural Pulses: bilateral posterior tibial was Doppled. Pre Procedural Pulses: bilateral radial was 3+. Oxygen started at 2liters/min via nasal canula. bilateral groins was prepped with chloroprep then draped in the usual sterile fashion. Physician notified. Equipment: Peripheral. Cardiac Cath Pack. ACIST Manifold Kit Model BT 2000. Heparinized Saline (2 units/mL), 1000 mL bag. Physician arrived. Baseline sample Acquired. HR: 59 BPM. Physician scrubbed in. Immediate Pre-Procedure Time Out. Correct Patient: Yes; Correct Procedure: Yes; Correct Site: Yes; Correct Patient Position: Yes; Correct Supplies: Yes; Dried Flammable Prep: Yes; Blood Products Available: No;. Lidocaine 1% infiltrated to the left groin. Arterial access obtained with micropuncture set. Runoff of right leg performed through the sheath at 10mL for a total of 30mL. A 5FrFr UF catheter in over wire. Abdominal aortogram performed in DOLAN @ 10 mL/sec for a total of 30 mL. Catheter out. A 5FrFr RIM catheter in over wire. Glidewire inserted. Catheter out. A 5FrFr UF catheter in over wire. Catheter out. A 5FrFr RIM catheter in over wire. Runoff of right leg performed at 10mL for a total of 30mL. Dr. Burns notified. Side port of sheath attached to Normal Saline flush at KVO to maintain patency. Dr. Burns arrived. Physicians reviewed films. Rupert contacted and physicians spoke with him. Dr. Burns scrubbed in to perform intervention. Glidewire inserted. Catheter out over the glidwire. Catheter out. A [id number] catheter in over wire. Catheter out over the gtlidewire. Exchanged the 6FR sheath for a flexor 7FR sheath. Multipurpose catheter in over the wire. Glidewire out. 0.35 glidewire inserted. MPA catheter out over the glidewire. Runoff of Right leg performed at 5mL for a total of 10mL. Inflation number : 1 A AB ARMADA 35 OTW [id number] was prepped and advanced across the Common Femoral, Right , then inflated to 10 ESTRELLA for 1:03 seconds. Inflation number: 2 The AB ARMADA 35 OTW [id number] was reinflated across the Common Femoral, Right, to 10 ESTRELLA for 1:02 seconds. Balloon out. Side port of sheath attached to Normal Saline flush at KVO to maintain patency. Wire out. Hand injection performed. Glidewire inserted. Glidewire out. Command wire inserted. Inflation number : 1 A AB ARMADA 14 OTW [id number] was prepped and advanced across the Anterior Tibial, Right , then inflated to 8 ESTRELLA for 1:05 seconds. Inflation number: 2 The AB ARMADA 14 OTW [id number] was reinflated across the Anterior Tibial, Right, to 8 ESTRELLA for 0:55 seconds. Hand injection performed. Patient spouse updated. Inflation number: 3 The AB ARMADA 14 OTW [id number] was reinflated across the Anterior Tibial, Right, to 8 ESTRELLA for 0:28seconds. Balloon out. Inflation number : 4 A AB ARMADA 14 OTW [id number] was prepped and advanced across the Anterior Tibial, Right , then inflated to 8 ESTRELLA for 1:04 seconds. Inflation number: 5 The AB ARMADA 14 OTW [id number] was reinflated across the Anterior Tibial, Right, to 12 ESTRELLA for 0:36 seconds. Inflation number: 6 The AB ARMADA 14 OTW [id number] was reinflated across the Anterior Tibial, Right, to 14 ESTRELLA for 0:17 seconds. Balloon out. Wire out. Checking results. Groin shot taken. 7FR flexor sheath exchanged for 7FR regular sheath. Vital chart was stopped. Sheath(s) sutured into position with 2-0 silk and sterile 4x4's and Op-site applied over the site. No oozing or signs and symptoms of hematoma noted. Arterial sheath flushed and connected to tranducer and pressure bag with heparinized saline. Post Procedure: Pulses reassessed and unchanged. PERRLA. Strong, equal hand package lift operator bilaterally. No VTE prophylaxis required. Medication's Wasted: Lidocaine 1% = 10 mL. Medication's Wasted: Verapamil = 5 mg. Medication's Wasted: Nitro = 99.6 mg. Medication's Wasted: Heparin = 1000 units. Total IV fluids: 440 mL. Contrast type used: Visipaque 320 mgI/mL, 500 mL bottle. Post-op diagnosis: PVD. Complications: None. Estimated blood loss: 5mL-10mL. Procedure completed. Patient transferred by bed to 1st floor. Procedure Medications Start: 8:55 AM Stop: 8:55 AM Medication: 0.9% Saline Amount: 250 ml Route: I.V. bolus Start: 8:57 AM Stop: 8:57 AM Medication: Versed Amount: 1 mg Route: I.V. Start: 9:26 AM Stop: 9:26 AM Medication: Versed Amount: 1 mg Route: I.V. Start: 10:06 AM Stop: 10:06 AM Medication: Versed Amount: 1 mg Route: I.V. Start: 10:17 AM Stop: 10:17 AM Medication: Versed Amount: 1 mg Route: I.V. Start: 10:28 AM Stop: 10:28 AM Medication: Heparin Amount: 5000 units Route: I.V. Start: 9:40 AM Stop: 9:40 AM Medication: Heparin Amount: 1500 units Route: I.V. Start: 10:46 AM Stop: :46 AM Medication: Versed Amount: 1 mg Route: I.V. Start: 11:07 AM Stop: 11:07 AM Medication: Versed Amount: 1 mg Route: I.V. Start: 10:38 AM Stop: 10:38 AM Medication: Versed Amount: 1 mg Route: I.V. Start: 11:24 AM Stop: 11:24 AM Medication: Versed Amount: 1 mg Route: I.V. Start: 11:29 AM Stop: 11:29 AM Medication: Nitrogylcerin Amount: 200 mcg Route: I.A. Start: 11:29 AM Stop: 11:29 AM Medication: Heparin Amount: 2000 units Route: I.V. I, the attending physician, have reviewed and verified all procedure medications. Yes, all medications given per verbal order History/Risk Factors Hypertension: Yes Dyslipidemia: Yes Peripheral Arterial Disease (PAD): Yes Obesity: No Renal Disease: No Prior Interventions PCI: Yes CABG: Yes Valve Surgery: No Report Signatures Interventional Workflow Finalized by Germania Burns MD on 07/20/2020 08:14 PM Diagnostic Workflow Finalized by Dr Afsaneh Anderson MD [facility] on 07/09/2020 08:17 PM
--- NOTE | 2020-07-09 08:38 | PM.HP ---
Providers/Chief Complaint Primary Care Provider: Isis Villasenor MD Chief Complaint: lower extremity peripheral diagnostic bilateral History of Present Illness Marry Chatman is a 74 year old female with a history of atherosclerotic heart disease, high blood pressure, dyslipidemia and peripheral artery disease, presenting with increasing pain in the lower extremities, more specifically on the right side. She had an ALIDA on the left side which is 0.8. The right dorsalis pedis and posterior tibial arteries were found to be totally occluded. The CTA of the peripheral arteries revealed around 90% lesion in the left SFA and around 80 percent lesion in the right SFA. Because of the ongoing leg pain with exercise, in order to further evaluate her peripheral arteries, peripheral angiogram and possible intervention was recommended. Patient has not had any recent chest pain or any unusual shortness of breath. She has been diagnosed with anemia. No other specific complaints. Denies any fever, chills or cough. No other specific complaints. She gets the leg pain walking less than 200 feet, on the right side Review of Systems Narrative: CONSTITUTIONAL: No fever or chills. EYES: No blurring of vision or other visual disturbances lately. ENT: No hoarseness of voice, auditory disturbances or sore throat. CARDIOVASCULAR: As mentioned above. RESPIRATORY: No significant cough. GASTROINTESTINAL: No hematemesis or melena. GENITOURINARY: No dysuria or hematuria. INTEGUMENTARY: No skin rashes or history of skin cancer. NEURO: No transient ischemic attacks or amaurosis. PSYCHIATRIC: No history of psychosis or major depression. HEMATOLOGIC: No bleeding disorders or significant anemia. ENDOCRINE: No history of polyuria or polydipsia. MUSCULOSKELETAL: There is no claudication as mentioned above. ALLERGY/IMMUNOLOGY: As mentioned above. Medications/Allergies Home Medications Medication Instructions Recorded Confirmed Last Taken Type insulin human U-100 NPH-regulr See Rx Instructions SUBCUT QAM 09/12/19 07/09/20 07/08/20 History 70-30 mix 100 unit/mL subcutaneous susp isosorbide mononitrate 30 mg 30 mg PO QAM 09/12/19 07/09/20 07/09/20 06:15 History tablet,extended release 24 hr metformin 500 mg tablet 500 mg PO BID 09/12/19 07/09/20 07/08/20 06:15 History amlodipine 10 mg tablet 10 mg PO QAM tab 09/28/19 07/09/20 07/09/20 06:15 History aspirin 81 mg tablet,delayed 81 mg PO QPM tab 09/28/19 07/09/20 07/08/20 19:00 History release atorvastatin 80 mg tablet 80 mg PO QPM tab 09/28/19 07/09/20 07/08/20 19:00 History bimatoprost 0.01 % eye drops 1 drop OPHTHALMIC (EYE) QDAY ml 09/28/19 07/09/20 07/09/20 06:15 History clopidogrel 75 mg tablet 75 mg PO QPM tab 09/28/19 07/09/20 07/08/20 21:00 History levothyroxine 125 mcg tablet 125 mcg PO QAM tab 09/28/19 07/09/20 07/09/20 06:15 History pantoprazole 20 mg tablet,delayed 40 mg PO QPM tab 09/28/19 07/09/20 07/08/20 21:00 History release dulaglutide 0.75 mg/0.5 mL 0.75 mg SUBCUT .weekly ml 11/22/19 07/09/20 07/02/20 History subcutaneous pen injector [facility] BRACES #1 ea NS 03/28/20 05/09/20 Unknown Rx FAST FORM THUMB SPICA SPLINT #1 ea NS 03/28/20 05/09/20 Unknown Rx ferrous sulfate 325 mg (65 mg 325 mg PO QPM 05/23/20 07/09/20 07/08/20 19:00 History iron) tablet Fosamax 70 mg PO DIRECTED 07/06/20 07/09/20 07/09/20 History Jardiance 10 mg PO QAM 07/06/20 07/09/20 07/09/20 06:15 History Norvasc 10 mg PO QAM 07/06/20 07/09/20 07/09/20 06:15 History triamterene 37.5 mg PO QAM 07/06/20 07/09/20 07/09/20 06:15 History Allergies Allergy/AdvReac Type Severity Reaction Status Date / Time codeine Allergy ALGY-Difficulty Verified 07/06/20 10:06 Breathing Opioids - Morphine Analogues Allergy ALGY-Hives Verified 07/06/20 10:06 [id number]-Zue Reductase Allergy ALGY-Rash Verified 07/06/20 10:06 Inhibitor PFSH Acute PFSH: Medical History (Updated 07/09/20 @ 08:46 by Afsaneh Randall MD) Bilateral carotid artery stenosis CAD (coronary artery disease) Chronic kidney disease, stage 3 Patient be carefully hydrated for the green insufficiency. Diabetes mellitus Hypertension Leg pain, bilateral Mixed hyperlipidemia Osteoarthritis of knees, bilateral Osteoarthritis, chronic Peripheral vascular disease Surgical History H/O heart bypass surgery Family History Other CAD (coronary artery disease) Diabetes Social History Smoking and tobacco status: never smoked Alcohol intake: former Vitals/I&O/Wt Last Vital Signs Temp 98.5 F 07/09/20 08:04 Pulse 86 07/09/20 08:04 Resp 18 07/09/20 08:04 BP 125/88 07/09/20 08:04 Pulse Ox 98 07/09/20 08:04 Weight last 48 hrs Weight 137 lb Physical Exam Narrative: EXAM NARRATIVE: GENERAL: The patient is alert and oriented times three. Not in any acute distress. HEENT: No significant pallor, icterus or lymphadenopathy.Oral cavity: There are no mucous membrane lesions. NECK: Trachea appears to be central. No masses noted. No JVD or thyromegaly appreciated. RESPIRATORY: Chest is symmetrical. No intercostals muscle retraction or any accessory muscle activation. There is no chest wall tenderness. Breath sounds are heard bilaterally. No rales or rhonchi heard. No evidence of any consolidation. BREASTS: Deferred. HEART: The heart sounds are normal. No S3 or S4. Short systolic murmur at the left sternal border. No diastolic murmurs. No pericardial rub ABDOMEN: No vessel pulsations or distention. No tenderness. No organomegaly appreciated. Bowel sounds are normally heard. : Deferred. RECTAL: Deferred. LYMPHATIC: No lymphadenopathy noted in the neck or groin. EXTREMITIES: Dorsalis pedis and posterior tibial pulses are nonpalpable on the right side. There are faintly palpable on the left side. MUSCULOSKELETAL: No acute joint deformities or swelling SKIN: There are no significant rashes or ecchymosis NEUROPSYCHIATRIC: The patient is alert and oriented x3. Appears to be in a good mood. No tremors or rigidity noted. Data : 07/09/20 08:15 07/09/20 08:15 Other Labs: CTA of the lower extremity 1. Atherosclerotic narrowing of the superficial femoral arteries with the stenosis on the left 90.6% and on the right 84.9%. 2. Distal superficial femoral artery stents are patent. 3. Arterial flow in the posterior tibial arteries is seen into the ankles and feet bilaterally. ALIDA of the lower extremity COULD NOT OBTAIN RIGHT CHILD CARE COUNSELOR AND RT DPA VELOCITIES Moderate dense diffuse plaques in the iliac and femoral artery on the right side. No Doppler flow signals in the posterior tibial and dorsalis pedis artery on the right side Abnormal resting ALIDA on the left side CONCLUSIONS 1. Abnormal resting ALIDA, suggestive of mild arterial disease on the left side. 2. Features of total occlusion of the posterior tibial and dorsalis pedis artery on the right side Carotid Doppler examination on 06/18/2020 Moderate dense plaques at the right bifurcation and proximal internal carotid artery with velocity elevation consistent with 50 to 79% Minimal plaques at the left bifurcation internal carotid artery Compared to the study from 07/30/2019, there may not be a significant change A&P Assessment and plan (1) Peripheral vascular disease: Patient has significant limitation of activities because of the leg pain. Noted to further evaluate her peripheral arteries, peripheral angiogram and possible intervention would be appropriate. Status: Acute (2) Bilateral carotid artery stenosis: Currently she seems to be stable with no specific neurological symptoms. Status: Acute (3) CAD (coronary artery disease): Since she has no recent chest pain or any specific cardiac symptoms, she may not require any specific interventions at this point. Status: Acute Qualifiers: Associated angina: without angina Coronary Disease-Associated Artery/Lesion type: [place] artery [place] vs. transplanted heart: [place] heart Qualified Code(s): I25.10 - Atherosclerotic heart disease of [place] coronary artery without angina pectoris (4) Hypertension: Blood pressure is currently stable. May continue on the current medications. Status: Acute Qualifiers: Hypertension type: essential hypertension Qualified Code(s): I10 - Essential (primary) hypertension (5) Chronic kidney disease, stage 3: Status: Acute Qualifiers: Chronic kidney disease stage 3 subtype: stage 3a (GFR 45-59) Qualified Code(s): N18.31 - Chronic kidney disease, stage 3a Additional A&P Information In view of the patient's previous history of PVD and current ongoing symptoms and the abnormal objective findings, in order to further evaluate her peripheral arterial status, peripheral angiogram would be appropriate. The risk of bleeding, hematoma, vascular injury, myocardial infarction, renal failure and other concomitant complications were explained in detail. Patient understood this well and consented to proceed. Based on the angiogram findings, further recommendations will be made Attestations Medical Necessity Statement*: Patient may stay require at least 1 overnight stay after the procedures Coding Level of Care Code Acute Medical Videographer for Chg Fwd Diagnoses Peripheral vascular disease I73.9 Bilateral carotid artery stenosis I65.23 CAD (coronary artery disease) I25.10 Associated angina: without angina Coronary Disease-Associated Artery/Lesion type: [place] artery [place] vs. transplanted heart: [place] heart Hypertension I10 Hypertension type: essential hypertension Chronic kidney disease, stage 3 N18.31 Chronic kidney disease stage 3 subtype: stage 3a (GFR 45-59)
[2020-07-09 08:41] LABS: Anion Gap 16.6 (5-19); Blood Urea Nitrogen 30 mg/dL (8-23); Calcium 9.1 mg/dL (8.5-10.5); Carbon Dioxide 19 mmol/L (22-29); Chloride 101 mmol/L (98-107); Glucose 218 mg/dL (65-115); Osmolality Calculated 287 mOsm/kg (285-295); Potassium 4.6 mmol/L (3.5-5.1); Sodium 132 mmol/L (136-145)
--- NOTE | 2020-07-09 08:53 | W.PM.OPSUD ---
Surgery/Procedure H&P Update DATE OF PROCEDURE: July 09, 2020 DATE H&P PERFORMED: 07/09/20 PREOP DIAGNOSIS: Peripheral arterial disease, Fontan stage IIb PRIMARY INDICATION FOR PROCEDURE: Limitation of functional status because of the pain PLANNED PROCEDURE: Operation Date: 07/09/20 08:30 Proposed Procedures p lower extremity Peripheral Diagnostic bilateral(Bilateral) - Afsaneh Randall MD PATIENT REASSESSED PRIOR TO SEDATION, WITH NO CHANGE NOTED: Yes PHYSICAL EXAM: alert, oriented x 3 and clear to auscultation bilaterally AIRWAY EVAL/ANESTHESIA PLAN: normal airway, see other exam findings, ASA III, Risks, benefits & alternatives of sedation and/or procedure discussed and Patient agrees to continue as planned
--- NOTE | 2020-07-09 13:10 | PC.NURSE ---
PATIENT FEMORAL SITE NOTED TO BE DRAINING MILDLY, DR. CALDWELL NOTIFIED AND ORDERED TO PUT 5LB SANDBAG ON LEFT FEMORAL SITE.
[2020-07-09] MEDS: acetaminophen 325 mg Tablet 650 MG PO ×2 (13:32→21:27)
[2020-07-09 15:59] LABS: Partial Thromboplastin Time 89.6 SECONDS (23.9-36.7)
--- NOTE | 2020-07-09 17:50 | PC.NURSE ---
DUE TO PATIENT RECEIVING CONTRAST DURING PERIPHERAL CATH TODAY, STOP METFORMIN, PLEASE PLACE PATIENT ON MODERATE SLIDING SCALE INSULIN REGIMEN PER DR. RAMSEY.
[2020-07-09 17:51] LABS: Glucose Point of Care 330 mg/dL (70-110)
[2020-07-09] MEDS: pantoprazole DR 40 mg Tablet PO (18:04)
[2020-07-09] MEDS: atorvastatin 40 mg Tablet 80 MG PO (18:04)
[2020-07-09] MEDS: clopidogrel 75 mg Tablet PO (18:04)
[2020-07-09] MEDS: aspirin 81 mg EC Tablet PO (18:04)
[2020-07-09] MEDS: ferrous sulfate EC 325 mg Tablet PO (18:05)
--- NOTE | 2020-07-09 18:35 | PC.NURSE ---
SHEATH PULL PERFORMED AT 1652. PRESSURE HELD FOR 20 MINUTES. NO HEMATOMA FORMATION. PATIENT TOLERATED WELL.
--- NOTE | 2020-07-09 19:39 | PC.NURSE ---
Rounding: Patient is resting in bed. Left groin is clean dry and intact no hematoma. Patient denies any needs at this time.
[2020-07-09 20:40] LABS: Glucose Point of Care 229 mg/dL (70-110)
--- NOTE | 2020-07-09 23:26 | PC.NURSE ---
Patient ambulated post cath and no hematoma. Site is clean dry and intact.
--- NOTE | 2020-07-09 23:59 | PC.NURSE ---
Called Dr. Prakash gutierrez patients R leg. 2 semi soft knots on her johnson and above her ankle. Pulses are dopplarable pedal and tibial. Orders to allie the knots and montior them.
[2020-07-10] VITALS (8 sets, daily range): BP systolic 93–128; BP diastolic 45–89; PULSE 69–91; RESP 15–27; TEMP 36.4–37; O2SAT 93–98
[2020-07-10] MEDS: acetaminophen 325 mg Tablet 650 MG PO (03:48)
--- NOTE | 2020-07-10 05:05 | PC.NURSE ---
End of shift: Patient L groin remains clean dry and intact. No hematoma. The bumps on patients R leg are the same size. Patients tibal and pedal pulses are normal.
[2020-07-10] MEDS: levothyroxine 125 mcg Tablet PO (06:08)
--- NOTE | 2020-07-10 06:09 | PC.NURSE ---
Called Dr. Prakash gutierrez patients blood pressure and morning medications. Orders to hold Imdur and Amlodpine. Read back vebal order.
[2020-07-10 06:30] LABS: Glucose Point of Care 216 mg/dL (70-110)
[2020-07-10 10:36] LABS: Basophils % 0.5 %; Eosinophils # 0.1 10^3/uL (0.0-0.8); Hematocrit 30.2 % (37.0-47.0); Hemoglobin 9.1 g/dL (11.5-15.3); Lymphocytes # 1.4 10^3/uL (0.8-4.8); Lymphocytes % 21.1 %; Mean Corpuscular HGB Conc 30.1 g/dL (30.0-36.0); Mean Corpuscular Hemoglobin 27.2 pg (28.0-34.0); Mean Corpuscular Volume 90.4 fL (81-99); Mean Platelet Volume 9.5 fL (7.4-10.4); Monocytes # 0.6 10^3/uL (0.2-0.9); Monocytes % 8.9 %; Neutrophils # 4.46 10^3/uL (1.8-7.7); Neutrophils % 66.9 %; Nucleated Red Blood Cells % 0 %; Platelet Count 421 10^3/cmm (130-400); Red Blood Count 3.34 10^6/uL (4.1-5.3); Red Cell Distribution Width 15.1 % (12.1-15.1); White Blood Count 6.7 10^3/uL (4.0-10.0)
[2020-07-10 10:43] LABS: Glucose Point of Care 311 mg/dL (70-110)
[2020-07-10 10:55] LABS: Anion Gap 15.7 (5-19); Blood Urea Nitrogen 39 mg/dL (8-23); Calcium 8.2 mg/dL (8.5-10.5); Carbon Dioxide 18 mmol/L (22-29); Chloride 104 mmol/L (98-107); Glucose 279 mg/dL (65-115); Osmolality Calculated 295 mOsm/kg (285-295); Potassium 4.7 mmol/L (3.5-5.1); Sodium 133 mmol/L (136-145)
--- NOTE | 2020-07-10 11:23 | PC.NURSE ---
LABS REPORTED TO DR. CALDWELL, ORDERED TO PLEASE GIVE NS AT 125ML/HR. PLEASE REDRAW BMP AT 1600.
[2020-07-10] MEDS: sodium chloride 0.9% 1,000 ML 125 ML IV (11:33)
[2020-07-10 16:37] LABS: Glucose Point of Care 200 mg/dL (70-110)
[2020-07-10 17:02] LABS: Blood Urea Nitrogen 37 mg/dL (8-23); Calcium 7.9 mg/dL (8.5-10.5); Carbon Dioxide 19 mmol/L (22-29); Chloride 105 mmol/L (98-107); Glucose 190 mg/dL (65-115); Osmolality Calculated 292 mOsm/kg (285-295); Sodium 134 mmol/L (136-145)
[2020-07-10 17:30] LABS: Anion Gap 15.1 (5-19); Potassium 5.1 mmol/L (3.5-5.1)
[2020-07-10] MEDS: ferrous sulfate EC 325 mg Tablet PO (17:36)
[2020-07-10] MEDS: clopidogrel 75 mg Tablet PO (17:37)
[2020-07-10] MEDS: atorvastatin 40 mg Tablet 80 MG PO (17:37)
[2020-07-10] MEDS: aspirin 81 mg EC Tablet PO (17:37)
[2020-07-10] MEDS: pantoprazole DR 40 mg Tablet PO (17:37)
--- NOTE | 2020-07-10 17:52 | P.PN_ITS ---
Subjective Subjective: Interval history: Patient is feeling okay. She had a peripheral angiogram followed by percutaneous intervention of the common femoral artery and the anterior tibial artery. She developed a small hematomas in the anterior aspect of the right leg possible related to mild perforation. The hematoma subsided spontaneously. Medications: Reviewed: Yes Medication Review Details: Current Medications Acetaminophen (Acetaminophen 325 Mg Tablet) 650 mg PO Q6H PRN PRN Reason: MILD PAIN Last Admin: 07/10/20 03:48 Dose: 650 mg Documented by: Al Hydrox/Mg Hydrox/Simethicone (Oykz-Vel-Yvsleezxi-Vida 30 Ml Udc) 30 ml PO Q15M PRN PRN Reason: INDIGESTION Alprazolam (Alprazolam 0.25 Mg Tablet) 0.25 mg PO TID PRN PRN Reason: ANXIETY Amlodipine Besylate (Amlodipine 10 Mg Tablet) 10 mg PO QAM [facility] Last Admin: 07/10/20 06:08 Dose: Not Given Documented by: Aspirin (Aspirin 81 Mg Ec Tablet) 81 mg PO QPM [facility] Last Admin: 07/10/20 17:37 Dose: 81 mg Documented by: Atorvastatin Calcium (Atorvastatin 40 Mg Tablet) 80 mg PO QPM [facility] Last Admin: 07/10/20 17:37 Dose: 80 mg Documented by: Atropine Sulfate (Atropine 1 Mg/Ml Sdv 1 Ml) 0.5 mg IVP PRN PRN PRN Reason: Symptomatic bradycardia Bimatoprost (Bimatoprost 0.01% Op Soln 2.5 Ml Btl) 1 drop EYE-BOTH DAILY [facility] Last Admin: 07/10/20 08:27 Dose: Not Given Documented by: Clopidogrel Bisulfate (Clopidogrel 75 Mg Tablet) 75 mg PO QPM [facility] Last Admin: 07/10/20 17:37 Dose: 75 mg Documented by: Dextrose (Dextrose 50% Syringe 50 Ml) 25 ml IVP ONCE PRN; Protocol PRN Reason: hypoglycemia protocol Dextrose (Dextrose 50% Syringe 50 Ml) 50 ml IVP PRN PRN; Protocol PRN Reason: hypoglycemia protocol Fentanyl (Fentanyl 50 Mcg/Ml Inj 2ml) 50 mcg IVP PRN PRN PRN Reason: PAIN Ferrous Sulfate (Ferrous Sulfate Ec 325 Mg Tablet) 325 mg PO QPM [facility] Last Admin: 07/10/20 17:36 Dose: 325 mg Documented by: Glucagon (Glucagon 1 Mg/Ml Inj 1 Ml) 1 mg IM ONCE PRN; Protocol PRN Reason: Adult Acute Hypoglycemia Prot. Dextrose (D5w) 500 mls @ 100 mls/hr IV ONCE PRN; Protocol PRN Reason: Adult Acute Hypoglycemia Prot Sodium Chloride (Sodium Chloride 0.9%) 1,000 mls @ 125 mls/hr IV .Q8H [facility] Last Infusion: 07/10/20 17:37 Dose: Infused Documented by: Insulin Aspart (Insulin Aspart 100 Unit/1 Ml) 0 unit SUBCUT WM&BEDTIME [facility]; Protocol Last Admin: 07/10/20 17:36 Dose: 6 unit Documented by: Isosorbide Mononitrate (Isosorbide Mononitrate Er 30 Mg Tablet) 30 mg PO [facility] Last Admin: 07/10/20 06:08 Dose: Not Given Documented by: Levothyroxine Sodium (Levothyroxine 125 Mcg Tablet) 125 mcg PO [facility] Last Admin: 07/10/20 06:08 Dose: 125 mcg Documented by: Magnesium Hydroxide (Magnesium Hydroxide 30 Ml Udc) 30 ml PO DAILY PRN PRN Reason: CONSTIPATION Naloxone HCl (Naloxone 0.4 Mg/Ml Sdv) 0.1 mg IVP Q2M PRN PRN Reason: RESPIRATORY RATE < 8/MIN Nitroglycerin (Nitroglycerin 0.4 Mg Sublingual Tablet) 0.4 mg SUBLINGUAL Q5M PRN PRN Reason: CHEST PAIN Non-Formulary Medication (Dulaglutide [Trulicity]) 0.75 mg SUBCUT .weekly [facility] Non-Formulary Medication (Fosamax) 70 mg PO DIRECTED [facility] Non-Formulary Medication (Insulin Nph And Regular Human [Humulin 70/30 U-100 Insulin]) 0 unit SUBCUT [facility] Last Admin: 07/10/20 06:08 Dose: Not Given Documented by: Non-Formulary Medication (Jardiance) 10 mg PO [facility] Last Admin: 07/10/20 06:08 Dose: Not Given Documented by: Non-Formulary Medication (Triamterene) 37.5 mg PO [facility] Last Admin: 07/10/20 06:22 Dose: Not Given Documented by: Pantoprazole Sodium (Pantoprazole Dr 40 Mg Tablet) 40 mg PO QPM [facility] Last Admin: 07/10/20 17:37 Dose: 40 mg Documented by: Temazepam (Temazepam 15 Mg Capsule) 15 mg PO BEDTIME PRN PRN Reason: INSOMNIA Vitals/I&O/Wt Last Vital Signs Temp 98.2 F 07/10/20 16:00 Pulse 81 07/10/20 16:00 Resp 20 H 07/10/20 16:00 BP 117/71 07/10/20 16:00 Pulse Ox 98 07/10/20 16:00 07/10/20 07/10/20 07/10/20 06:59 14:59 22:59 Intake Total 650 / 1390 120 / 120 878.333 / 998.333 Balance 650 / 690 120 / 120 878.333 / 998.333 Weight last 48 hrs Weight 137 lb Physical Exam Narrative: EXAM NARRATIVE: GENERAL: The patient is alert and oriented times three. Not in any acute distress. HEENT: No significant pallor, icterus or lymphadenopathy.Oral cavity: There are no mucous membrane lesions. NECK: Trachea appears to be central. No masses noted. No JVD or thyromegaly appreciated. RESPIRATORY: Chest is symmetrical. No intercostals muscle retraction or any accessory muscle activation. There is no chest wall tenderness. Breath sounds are heard bilaterally. No rales or rhonchi heard. No evidence of any consolidation. BREASTS: Deferred. HEART: The heart sounds are normal. No S3 or S4. Short systolic murmur at the left sternal border. No diastolic murmurs. No pericardial rub ABDOMEN: No vessel pulsations or distention. No tenderness. No organomegaly appreciated. Bowel sounds are normally heard. : Deferred. RECTAL: Deferred. LYMPHATIC: No lymphadenopathy noted in the neck or groin. EXTREMITIES: The dorsalis pedis and posterior tibial pulses are dictated with a Doppler on the right side-previously was not dopplerable MUSCULOSKELETAL: No acute joint deformities or swelling SKIN: There are no significant rashes or ecchymosis NEUROPSYCHIATRIC: The patient is alert and oriented x3. Appears to be in a good mood. No tremors or rigidity noted. Const: COMMON NORMALS: alert Resp: COMMON NORMALS: clear to auscultation bilaterally AUSCULTATION: clear to auscultation bilaterally Neuro: SENSORIUM/ORIENTATION: Yes alert Data : 07/10/20 10:11 07/10/20 16:35 A&P Assessment and plan (1) Peripheral vascular disease: Patient status post peripheral angiogram followed by angioplasty of the common femoral artery and the anterior tibial artery. Status: Acute (2) Bilateral carotid artery stenosis: Currently she seems to be stable with no specific neurological symptoms. Status: Acute (3) CAD (coronary artery disease): Since she has no recent chest pain or any specific cardiac symptoms, she may not require any specific interventions at this point. Status: Acute Qualifiers: Coronary Disease-Associated Artery/Lesion type: [place] artery [place] vs. transplanted heart: [place] heart Associated angina: without angina Qualified Code(s): I25.10 - Atherosclerotic heart disease of [place] coronary artery without angina pectoris (4) Hypertension: Blood pressure is currently stable. May continue on the current med ications. Status: Acute Qualifiers: Hypertension type: essential hypertension Qualified Code(s): I10 - Essential (primary) hypertension (5) Chronic kidney disease, stage 3: He has some features of contrast-induced nephropathy. Her creatinine went up to 1.5 today from 1.1. The BUN went up to 39 and then came back to 37 this evening. Status: Acute Qualifiers: Chronic kidney disease stage 3 subtype: stage 3a (GFR 45-59) Qualified Code(s): N18.31 - Chronic kidney disease, stage 3a Additional A&P Information Patient advised to drink plenty of fluids at home. Her kidney function is fairly stable at this time. She will have a repeat a BMP in the office on 07/12/2020. Based on the results, further management decisions will be made. I may see her in the office as scheduled. Attestations Medical Necessity Statement*: Discharge home today Coding Level of Care Code Acute Oracle Forms Developer for Cholo Ruelas Diagnoses Peripheral vascular disease I73.9 Bilateral carotid artery stenosis I65.23 CAD (coronary artery disease) I25.10 Coronary Disease-Associated Artery/Lesion type: [place] artery [place] vs. transplanted heart: [place] heart Associated angina: without angina Hypertension I10 Hypertension type: essential hypertension Chronic kidney disease, stage 3 N18.31 Chronic kidney disease stage 3 subtype: stage 3a (GFR 45-59)
== END 2020-07-10 18:41 | disposition home or self-care (01) ==
LOC: CCL 11:36 → CSU 11:37
PROVIDERS: Internal Medicine Cardiovascular Disease; Admitting Provider Internal Medicine Cardiovascular Disease; PCP Internal Medicine; Visit Provider Internal Medicine Cardiovascular Disease
DX: I70.203 Unspecified atherosclerosis of native arteries of extremities, bilateral legs (principal); I25.10 Atherosclerotic heart disease of native coronary artery without angina pectoris; E78.5 Hyperlipidemia, unspecified; D64.9 Anemia, unspecified; Z79.4 Long term (current) use of insulin; Z79.82 Long term (current) use of aspirin; Z79.02 Long term (current) use of antithrombotics/antiplatelets; I65.23 Occlusion and stenosis of bilateral carotid arteries; E11.51 Type 2 diabetes mellitus with diabetic peripheral angiopathy without gangrene; E78.2 Mixed hyperlipidemia; Z95.1 Presence of aortocoronary bypass graft; E11.22 Type 2 diabetes mellitus with diabetic chronic kidney disease; I12.9 Hypertensive chronic kidney disease with stage 1 through stage 4 chronic kidney disease, or unspecified chronic kidney disease; N18.31 Chronic kidney disease, stage 3a
CPT/HCPCS: 12345; 36415; 36416; 37224; 37228; 75625; 75716; 80048; 82962; 85025; 85730; 96360; 96361; 96372; C1725; C1769; C1887; C1894; G0378; J1644; J1815; J2250; J3490; J7030; Q0163; Q9967

== ENCOUNTER → 2020-07-17 12:14 | Outpatient (BNVA) | payer MEDICARE, OTHER, SELFPAY | PROVIDERS: PCP Internal Medicine; Visit Provider Nurse Practitioner Family | DX: I73.9 Peripheral vascular disease, unspecified (principal) | CPT/HCPCS: 80048 ==

== ENCOUNTER → 2020-07-18 13:37 | Outpatient (BNVA) | payer MEDICARE, OTHER, SELFPAY | PROVIDERS: PCP Internal Medicine; Visit Provider Internal Medicine Cardiovascular Disease | DX: I25.10 Atherosclerotic heart disease of native coronary artery without angina pectoris (principal); N18.31 Chronic kidney disease, stage 3a | CPT/HCPCS: 80048 ==

== ENCOUNTER → 2020-08-01 09:29 | Outpatient (BNVA) | payer MEDICARE, OTHER, SELFPAY | PROVIDERS: PCP Internal Medicine; Visit Provider Nurse Practitioner Family | DX: N18.31 Chronic kidney disease, stage 3a (principal); I25.10 Atherosclerotic heart disease of native coronary artery without angina pectoris; I73.9 Peripheral vascular disease, unspecified; I10 Essential (primary) hypertension | CPT/HCPCS: 80048 ==

== ENCOUNTER → 2020-08-23 08:47 | Outpatient (BNVA) | payer MEDICARE, OTHER, SELFPAY | PROVIDERS: PCP Internal Medicine; Referring Provider Internal Medicine; Visit Provider Internal Medicine | DX: E03.9 Hypothyroidism, unspecified (principal); E11.22 Type 2 diabetes mellitus with diabetic chronic kidney disease; N18.9 Chronic kidney disease, unspecified; E11.40 Type 2 diabetes mellitus with diabetic neuropathy, unspecified; E11.59 Type 2 diabetes mellitus with other circulatory complications; I25.10 Atherosclerotic heart disease of native coronary artery without angina pectoris; E11.65 Type 2 diabetes mellitus with hyperglycemia; E78.2 Mixed hyperlipidemia | CPT/HCPCS: 99204 ==

== ENCOUNTER 2020-08-27 10:50 | Outpatient (CLI) | payer MEDICARE, OTHER, SELFPAY ==
[2020-08-27 11:38] LABS: Thyroid Stimulating Hormone 0.11 uIU/mL (0.27-4.20)
[2020-08-27 18:04] LABS: Free T4 Free Thyroxine 1.64 ng/dL (0.82-1.77)
[2020-08-27 20:44] LABS: Estmated Average Glucose 169; Hemoglobin A1C 7.5 % (4.0-6.0)
== END 2020-08-27 10:51 | disposition home or self-care (01) ==
LOC: LAB 10:55
PROVIDERS: PCP Internal Medicine; Visit Provider Internal Medicine
DX: E11.65 Type 2 diabetes mellitus with hyperglycemia (principal); E03.9 Hypothyroidism, unspecified
CPT/HCPCS: 36415; 83036; 84439; 84443

== ENCOUNTER 2020-09-07 09:54 | Outpatient (CLI) | payer MEDICARE, OTHER, SELFPAY ==
[2020-09-07 10:13] VITALS: BMI 26.4
[2020-09-07 10:14] VITALS: BP 131/76; PULSE 91; RESP 17; TEMP 36.7; O2SAT 98
--- NOTE | 2020-09-07 10:25 | AMB.MCA ---
Patient Information Referred by: Hamilton Symptom onset date: 09/05/20 COVID 19 common symptoms: positive cough, non-productive cough, fatigue and body aches COVID 19 other sytmptoms: negative chest pressure, chest pain, pleuritic pain, requiring oxygen, requiring more oxygen, respiratory distress, cyanosis, lethargy, confusion, new neurological complaints or other concerning symptoms Severity: mild Treatment prior to arrival: none [facility] COVID test results: SARS-CoV-2 RNA (RT-PCR) Not detected (NOT DETECTED) 07/05/20 09:30 07/05/20 outside results available, scanned ( office.) Criteria/Plan Inclusion/Exclusion Criteria weight >/= 40kg, + direct test </= 10 days ago and symptom onset </= 10 days ago age >/= 65, has diabetes, age >/= 55 and has hypertension, age >/= 55 and has diabetes and age >/= 55 and has COPD/lung diease not requiring hospitalization, not requiring oxygen (if not chronically on oxygen) and no increase oxygen requirement (if chronically on oxygen) Patient education patient/caregiver received/reviewed fact sheet, Emergency Use Authorization/unapproved drug status discussed with patient/caregiver, alternatives to this treatment discussed with patient/caregiver, risks and benefits of medication reviewed with patient/caregiver, patient/caregiver given opportunity for questions, which were answered and patient/caregiver consents to receiving Monoclonal Antibody Treatment Plan for treatment Meets criteria for Monoclonal Antibody infusion Ordering Monoclonal Antibody infusion for today
[2020-09-07 11:18] VITALS: BP 121/71; PULSE 79; RESP 18; TEMP 36.7; O2SAT 96
[2020-09-07 11:36] VITALS: BP 118/69; PULSE 78; RESP 17; TEMP 36.6; O2SAT 98
[2020-09-07 12:39] VITALS: BP 139/80; PULSE 76; RESP 16; TEMP 36.6; O2SAT 97
[2020-09-07 12:42] VITALS: BP 139/80; PULSE 76; RESP 16; TEMP 36.6; O2SAT 97
--- NOTE | 2020-09-07 12:44 | PC.NURSE ---
1244 pt iv removed intact and dressing applied. Pt tolerated procedure well. pt taken to private vehicle by nursing staff with no complaints.
--- NOTE | 2020-09-13 14:36 | DCPLANNER ---
Addendum entered by Laurita Brizuela 09/18/20 15:50: production team manager called to check on patient after receiving the BAM infusion. Patient stated that she is doing good, she is still tired, but feeling good. She has not been admitted put into hospital anywhere. Original Note: production team manager had message that patient received the BAM infusion. production team manager called to check on patient after getting the BAM infusion. Patient stated that she is doing good. That before the infusion she had a sore throat, was sick to her stomach, she did not have a cough, she did have a fever. Patient stated that after the infusion she is doing good, she does not have a fever, but she is really tired.
== END 2020-09-07 12:42 | disposition home or self-care (01) ==
PROVIDERS: PCP Internal Medicine; Referring Provider Nurse Practitioner Family; Visit Provider Internal Medicine
DX: U07.1 COVID-19 (principal)
CPT/HCPCS: 96365; J7050

== ENCOUNTER 2020-10-29 13:16 | Outpatient (CLI) | payer MEDICARE, OTHER, SELFPAY ==
--- NOTE | 2020-10-29 | USCV_ITS ---
Marry Chatman Age: 75 Gender: F : 1945 Exam Date: 10/29/2020 14:03 Ordering Phys: Afsaneh Randall MD ([email or web address]) Technologist: Denton Landrum Exam Location: [facility] [place] Indication: PAD CCA STENOSIS Risk Factors: None Previous Vascular Surgery: Right Brachial BP: / Left Brachial BP: / Right Left Velocity (cm/s) Spectral Plaque Velocity (cm/s) Spectral Plaque Syst/Diast Broadening Syst/Diast Broadening 78.30/ 13.20 Prox CCA 79.40 / 15.40 76.10/ 16.50 Hetro Mid CCA 50.00 / 9.20 Hetro 69.50/ 14.30 Hetro Distal CCA 57.20 / 13.80 Hetro 166.90/58.30 Hetro Prox ICA 57.80 / 13.80 Hetro 176.90/52.30 Hetro Mid ICA 39.40 / 6.60 72.80/ 18.70 Distal ICA 42.40 / 12.30 141.10 ECA 79.50 2.26 ICA/CCA 0.73 Antegrade Vertebral Antegrade 70.60/ 19.80 cm/s 33.70/ 6.10 cm/s Tri Subclavian Tri 63.90 63.90 FINDINGS Moderate to heavy heterogeneous irregular plaques at the right bifurcation and proximal internal carotid artery Minimal plaques of the left bifurcation and the internal carotid artery. Intimal thickening in the common carotid arteries bilaterally. CONCLUSIONS Moderate to heavy heterogeneous irregular plaques at the right bifurcation and proximal internal carotid artery, with history of 50 to 69% stenosis Minimal plaquesat the left bifurcation suggesting less than 50% gnosis Minimal thickening in the common carotid arteries bilaterally Compared to the study from 06/18/2020, there is slight worsening of the plaque buildup on the right side Dr Afsaneh Randall MD [facility] (Electronically Signed) Final Date: 30 October 2020 09:34 S
--- NOTE | 2020-10-29 13:30 | USCV_ITS ---
Marry Chatman Age: 75 Gender: F : 1945 Exam Date: 10/29/2020 13:46 Ordering Phys: Afsaneh Randall MD ([email or web address]) Technologist: Denton Landrum [place] [facility] [place]: RT LEG STENT PAD Risk Factors: Previous Vascular Surgery: RIGHT LEFT BP: 120.0 / 70.00 BP: 120.0/ 70.00 0 0 Waveform Velocity (cm/s) Velocity (cm/s) Waveform Triphasic 122.4 Iliac Prox 113.1 Biphasic Triphasic 127.9 Iliac Mid 160.1 Biphasic Triphasic 122.4 Iliac Distal 133.1 Biphasic Biphasic 124.6 APARTMENT PROPERTY MANAGER 88.9 Monophasic Biphasic 125.7 SFA Prox 32.6 Monophasic Biphasic 122.4 SFA Mid 65.3 Monophasic Biphasic 99.2 SFA Dist 36.5 Monophasic Biphasic 81.6 POP 33.9 Monophasic Monophasic 46.3 BLENDER HELPER 115.1 Monophasic Monophasic 46.0 DPA 38.5 Monophasic 0.7 ALIDA 0.4 FINDINGS Moderate limits resting ALIDA on the right side of 0.7 Severely diminished resting ALIDA of 0.4 on the left side. CONCLUSIONS 1. Features of severe peripheral artery disease on the left side, possibly multisegmental. 2. Moderately diminished resting ALIDA on the right side, possibly involving the infrapopliteal vessels Compared to the previous study from 06/18/2020, there is worsening of the ALIDA on the left side. The posterior tibial and dorsalis pedis arteries were found to be patent on the right side. Dr Afsaneh Randall MD [facility] (Electronically Signed) Final Date: 30 October 2020 09:27 S
== END 2020-10-29 13:17 | disposition home or self-care (01) ==
LOC: RAD 13:17
PROVIDERS: PCP Internal Medicine; Visit Provider Internal Medicine Cardiovascular Disease
DX: I65.23 Occlusion and stenosis of bilateral carotid arteries (principal); I73.9 Peripheral vascular disease, unspecified
CPT/HCPCS: 93880; 93925

== ENCOUNTER → 2020-11-21 09:48 | Outpatient (BNVA) | payer MEDICARE, OTHER, SELFPAY | PROVIDERS: PCP Internal Medicine; Visit Provider Internal Medicine | DX: E03.9 Hypothyroidism, unspecified (principal); E11.22 Type 2 diabetes mellitus with diabetic chronic kidney disease; N18.30 Chronic kidney disease, stage 3 unspecified; E11.43 Type 2 diabetes mellitus with diabetic autonomic (poly)neuropathy; E11.59 Type 2 diabetes mellitus with other circulatory complications; I25.10 Atherosclerotic heart disease of native coronary artery without angina pectoris; E11.65 Type 2 diabetes mellitus with hyperglycemia; E78.2 Mixed hyperlipidemia; E87.5 Hyperkalemia; M81.0 Age-related osteoporosis without current pathological fracture | CPT/HCPCS: 36415; 80048; 80061; 83036; 84439; 84443; 99215 ==

== ENCOUNTER 2020-11-21 09:59 | Outpatient (CLI) | payer MEDICARE, OTHER, SELFPAY ==
[2020-11-21 11:06] LABS: Anion Gap 16.7 (5-19); Blood Urea Nitrogen 35 mg/dL (8-23); Calcium 10.1 mg/dL (8.5-10.5); Carbon Dioxide 20 mmol/L (22-29); Chloride 105 mmol/L (98-107); Chol HDL Ratio 3.57 mg/dL (0.0-4.40); Cholesterol 164 mg/dL (0-200); Glucose 221 mg/dL (65-115); HDL Cholesterol 46 mg/dL (60-100); LDL Cholesterol Calculated 74 mg/dL (50-129); LDL HDL Ratio 1.61 RATIO (0.00-3.22); Osmolality Calculated 297 mOsm/kg (285-295); Potassium 5.7 mmol/L (3.5-5.1); Sodium 136 mmol/L (136-145); Thyroid Stimulating Hormone 0.69 uIU/mL (0.27-4.20); Triglycerides 219 mg/dL (0-150)
[2020-11-21 12:02] LABS: Free T4 Free Thyroxine 1.39 ng/dL (0.82-1.77)
[2020-11-21 13:01] LABS: Estmated Average Glucose 212
== END 2020-11-21 10:00 | disposition home or self-care (01) ==
PROVIDERS: PCP Internal Medicine; Visit Provider Internal Medicine
DX: E11.65 Type 2 diabetes mellitus with hyperglycemia (principal); E11.43 Type 2 diabetes mellitus with diabetic autonomic (poly)neuropathy; E78.2 Mixed hyperlipidemia; E03.9 Hypothyroidism, unspecified
CPT/HCPCS: 36415; 80048; 80061; 83036; 84439; 84443

== ENCOUNTER → 2020-12-12 09:32 | Outpatient (BNVA) | payer MEDICARE, OTHER, SELFPAY | PROVIDERS: PCP Internal Medicine; Visit Provider Internal Medicine Cardiovascular Disease | DX: I73.9 Peripheral vascular disease, unspecified (principal) | CPT/HCPCS: 87635 ==

== ENCOUNTER 2020-12-17 08:52 | Day surgery (SDC) | payer MEDICARE, OTHER, SELFPAY ==
[2020-12-14 13:19] VITALS: BMI 26.4
[2020-12-17] VITALS (51 sets, daily range): BP systolic 121–188; BP diastolic 65–115; PULSE 50–85; RESP 8–26; TEMP 36.6–36.7; O2SAT 93–99; BMI 26.4
--- NOTE | 2020-12-17 09:00 | XACV_ITS ---
Wt: 61 kg BSA: 1.63 m2 Any Known Allergies: Other Gender: Female : 1945 Exam Type: Invasive Peripheral Vascular Procedure(s): Procedure Description: Peripheral Cath Diagnostic Procedure Procedure Description: Peripheral vascular Intervention Procedure Description: PV Balloon Procedure Description: PV Atherectomy Exam Priority: Routine Lower Extremity Interventional Findings Left proximal to mid SFA was crossed through right common femoral approach. Using Glidewire with seeker we were able to cross the proximal to mid SFA lesion. Multiple balloon angioplasty using [place] balloon were performed with good angiographic results and single-vessel runoff was noted below the left knee. Below left knee posterior tibial vessel is chronically occluded anterior tibial is patent. Conclusions Indication for peripheral angiogram: Critical limb ischemiaHistory of severe peripheral vascular disease with history of stent in the left SFA.Abdominal aortogram was not performed. Through right common femoral approach left common iliac was engaged. Left common iliac, left internal iliac, left common femoral and profundofemoral has luminal irregularities.Left SFA is chronically occluded in the proximal segment with occluded mid stent. No flow was noted below the left knee.. Right common iliac has luminal irregularity, right internal iliac is not well visualized, right external iliac has luminal irregularity right common femoral has luminal irregularity profundofemoral had luminal irregularities on the right side right SFA and popliteal has no significant stenosis below the knee single-vessel runoff was noted right. . Recommendations Usual post-cath care. Access Site Site: Right Femoral artery Sheath Size: 6 Fr Hemost... Method: Suture Hemost... Success: Successful Procedure Details Findings Procedure Consent Obtained. Admit Source: Out Patient. Pre-Procedure Time Out. Identified patient by full name and date of as verbalized by the patient/guarantor. Does the consent match the physician's order: Yes. Accurate & Complete Informed Consent: Yes. Inpatient/Outpatient History & Physical on Chart: Yes. If H&P is completed, is and addenduem needed: Yes; If yes, is the addendum complete: N/A. Visualize and Verify Site with Patient/Guarantor: N/A. Relevant Radiology Images available: N/A. Pre-op teaching completed and patient verbalized understanding. The risks, benefits, and alternatives of sedation and/or procedure were discussed by physician. The patient agrees to continue. Procedure started. Correct patient, site and procedure confirmed by cath team. PERRLA. Strong, equal hand grappler bilaterally. Lungs clear x 5 lobes. IV Site on Arrival: 22 gauge in the left forearm. Pre Procedural Pulses: right dorsalis pedis was 2+. Pre Procedural Pulses: left dorsalis pedis was 1+. Pre Procedural Pulses: right posterior tibial was 1+. Pre Procedural Pulses: left posterior tibial was Doppled. Oxygen started at 2liters/min via nasal canula. bilateral groins was prepped with chloroprep then draped in the usual sterile fashion. Baseline sample Acquired. HR: 72 BPM. Physician notified. Physician arrived. Physician scrubbed in. Immediate Pre-Procedure Time Out. Correct Patient: Yes; Correct Procedure: Yes; Correct Site: Yes; Correct Patient Position: Yes; Correct Supplies: Yes; Dried Flammable Prep: Yes; Blood Products Available: N/A;. Lidocaine 1% infiltrated to the right groin. Arterial access obtained with micropuncture set. glidewire inserted. A 5FrFr RIM catheter in over wire. glidewire out. handinjection performed. Catheter removed over the glide wire. Trailblazer catheter inserted over the wire. wire out. hand injection performed. glidewire out. runthrough wire inserted. glidewire inserted. trailblazer out. Sheath upsized to a 6 Fr. runoff performed 10mL/sec for a total of 30mL. runoff performed 10mL/sec for a total of 30mL. Trailblazer catheter inserted over the wire. Side port of sheath attached to Normal Saline flush at KVO to maintain patency. wire out. hand injection performed through the seeker. viperwire inserted. trailblazer out. jeremy inserted. performing atheroectomy in the SFA. out with the jeremy. seeker inserted over viperwire. viper wire out. glidewire inserted. seeker out. Inflation number : 1 A AB [place] 35 BRIDGE WORKER Catheter [id number] was prepped and advanced across the SFA , then inflated to 12 ESTRELLA for 1:00 seconds. Inflation number: 2 The AB [place] 35 BRIDGE WORKER Catheter [id number] was reinflated across the SFA, to 12 ESTRELAL for 2:04 seconds. Balloon out. Abdominal aortogram performed in AP @ 10 mL/sec for a total of 30 mL. exchanging long sheath back to short sheath. runoff of right leg performed. wire out. Sheath(s) sutured into position with 2-0 silk and sterile 4x4's and Op-site applied over the site. No oozing or signs and symptoms of hematoma noted. Arterial sheath flushed and connected to tranducer and pressure bag with heparinized saline. Post Procedure: Pulses reassessed and unchanged. PERRLA. Strong, equal hand grappler bilaterally. No VTE prophylaxis required. Medication's Wasted: Lidocaine 1% = 5 mL. Medication's Wasted: Heparin = 3000 units. Medication's Wasted: Other = fentanyl 75 mg. Total IV fluids: 100 mL. Contrast type used: Visipaque 320 mgI/mL, 500 mL bottle. Contrast Material : Visipaque 132 ml. Complications: none. Estimated blood loss: 5mL-10mL. pre diagnosis: severe PAD, with life changing Claudication. Post-op diagnosis: post CSI atherectiomy, and balloon angioplasty of mid SFA, chronic total occulsion with good angiographic result and flow. Procedure completed. Patient transferred by bed to ICU. A Suture was successful obtaining hemostatsis at the Right Femoral artery insertion site. Vital chart was stopped. Procedure Medications Start: 11:20 AM Stop: 11:20 AM Medication: Versed Amount: 1 mg Route: I.V. Start: 11:20 AM Stop: 11:20 AM Medication: Fentanyl Amount: 50 mcg Route: I.V. Start: 11:29 AM Stop: 11:29 AM Medication: Versed Amount: 1 mg Route: I.V. Start: 11:48 AM Stop: 11:48 AM Medication: Fentanyl Amount: 25 mcg Route: I.V. Start: 11:51 AM Stop: 11:51 AM Medication: Heparin Amount: 5000 units Route: I.V. Start: 11:55 AM Stop: 11:55 AM Medication: Fentanyl Amount: 25 mcg Route: I.V. Start: 12:17 PM Stop: 12:17 PM Medication: Versed Amount: 1 mg Route: I.V. Start: 12:22 PM Stop: 12:22 PM Medication: Fentanyl Amount: 25 mcg Route: I.V. Start: 12:27 PM Stop: 12:27 PM Medication: Nitrogylcerin Amount: 400 mcg Route: I.A. Start: 12:31 PM Stop: 12:31 PM Medication: Heparin Amount: 1000 units Route: I.V. History/Risk Factors Hypertension: Yes Dyslipidemia: Yes Myocardial Infarction (IA): Yes Tobacco Use: Never Prior Interventions CABG: Yes Report Signatures Finalized by Germania Burns MD on 12/30/2020 10:14 PM
[2020-12-17 09:53] LABS: Basophils # 0.1 10^3/uL (0.0-0.1); Basophils % 0.6 %; Eosinophils # 0.1 10^3/uL (0.0-0.8); Eosinophils % 1.3 %; Hematocrit 35.8 % (37.0-47.0); Hemoglobin 11.2 g/dL (11.5-15.3); Lymphocytes # 1.5 10^3/uL (0.8-4.8); Lymphocytes % 19.4 %; Mean Corpuscular HGB Conc 31.3 g/dL (30.0-36.0); Mean Corpuscular Hemoglobin 26.9 pg (28.0-34.0); Mean Corpuscular Volume 85.9 fL (81-99); Mean Platelet Volume 8.9 fL (7.4-10.4); Monocytes # 0.6 10^3/uL (0.2-0.9); Monocytes % 8.3 %; Neutrophils # 5.35 10^3/uL (1.8-7.7); Neutrophils % 69.5 %; Nucleated Red Blood Cells % 0 %; Platelet Count 460 10^3/cmm (130-400); Red Blood Count 4.17 10^6/uL (4.1-5.3); White Blood Count 7.7 10^3/uL (4.0-10.0)
[2020-12-17] MEDS: diphenhydrAMINE 50 mg Capsule PO (10:05)
[2020-12-17 10:27] LABS: Blood Urea Nitrogen 17 mg/dL (8-23); Calcium 8.9 mg/dL (8.5-10.5); Carbon Dioxide 21 mmol/L (22-29); Chloride 108 mmol/L (98-107); Glucose 186 mg/dL (65-115); Osmolality Calculated 294 mOsm/kg (285-295); Sodium 139 mmol/L (136-145)
--- NOTE | 2020-12-17 11:13 | P.HP_ITS ---
Same Day Surgery H&P Indication for Procedure/HPI DATE OF PROCEDURE: December 17, 2020 CHIEF COMPLAINT/INDICATIONFOR SURGICAL PROCEDURE: Lifestyle limiting claudication of left leg PREOP DIAGNOSIS: Peripheral arterial disease, Fontan stage IIb PLANNED PROCEDRUE: Operation Date: 12/17/20 10:00 Proposed Procedures p Peripheral Diagnostic 04362 I73.9(Not Applicable) - Germania Burns MD 75-year-old female past medical history significant for hypertension hyperlipidemia peripheral arterial disease with prior history of right SFA treatment with percutaneous intervention after failing medical management and exercise walking has been referred to us by Dr. Randall for peripheral angiogram and possible intervention of the left lower extremity for lifestyle limiting claudication. CTA but consistent with severe left SFA disease with patent prior distal stent. Patient has been explained all risk benefit and alternative for the procedure. She understand the risk of contrast-induced nephropathy, acute limb ischemia leading to urgent emergent vascular surgery worse case scenario amputation due to distal embolization or no reflow phenomena, she understand the risk of major minor bleed and vascular surgery. Patient has been explained in detail regarding FDA warning about drug-coated balloon which may have been shown to increase mortality in the subgroup according to her if it necessary I may can use it. We will therefore proceed with it as she has given us permission. Medications/Allergies* Home Medications Medication Instructions Recorded Confirmed Type isosorbide mononitrate 30 mg 30 mg PO QAM 09/12/19 12/17/20 History tablet,extended release 24 hr amlodipine 10 mg tablet 10 mg PO QAM tab 09/28/19 12/17/20 History aspirin 81 mg tablet,delayed 81 mg PO QPM tab 09/28/19 12/17/20 History release atorvastatin 80 mg tablet 80 mg PO QPM tab 09/28/19 12/17/20 History bimatoprost 0.01 % eye drops 1 drop OPHTHALMIC (EYE) QDAY ml 09/28/19 12/17/20 History clopidogrel 75 mg tablet 75 mg PO QPM tab 09/28/19 12/17/20 History pantoprazole 20 mg tablet,delayed 40 mg PO QPM tab 09/28/19 12/17/20 History release ferrous sulfate 325 mg (65 mg 325 mg PO QPM 05/23/20 12/17/20 History iron) tablet Fosamax 70 mg PO DIRECTED 07/06/20 12/17/20 History lisinopril 40 mg tablet 40 mg PO DAILY tab 08/09/20 12/17/20 History loteprednol etabonate 0.5 % eye 1 drp OPHTHALMIC (EYE) DAILY ml 08/09/2011/29 History drops,suspension levothyroxine 125 mcg tablet 112 mcg PO QAM tab 08/23/20 12/17/20 History prenat.vits,alcides,nax-seoo-vpuuc 1 tab PO DAILY 08/23/20 12/17/20 History triamterene 37.5 1 tab PO DAILY 08/23/20 12/17/20 History mg-hydrochlorothiazide 25 mg tablet Allergies/Adverse Reactions Allergy/AdvReac Type Severity Reaction Status Date / Time codeine Allergy ALGY-Difficulty Verified 11/21/20 09:08 Breathing Opioids - Morphine Analogues Allergy ALGY-Hives Verified 11/21/20 09:08 Nszjquv-Jas-Kyf Reductase Allergy ALGY-Rash Verified 11/21/20 09:08 Inhibitor Pertinent History/Comorbid Conditions* Medical History (Updated 11/21/20 @ 21:54 by Michelle Degroot MD) Atherosclerotic heart disease of [place] coronary artery without angina pectoris Bilateral carotid artery stenosis CAD (coronary artery disease) Diabetes mellitus Hx of deep venous thrombosis Hypertension Leg pain, bilateral Mixed hyperlipidemia Osteoarthritis of knees, bilateral Osteoarthritis, chronic Osteoporosis Peripheral vascular disease Surgical History (Updated 08/09/20 @ 13:38 by Afsaneh Randall MD) H/O heart bypass surgery History of PTCA History of repair of hiatal hernia History of tonsillectomy Hx of hysterectomy Family History (Updated 08/09/20 @ 13:24 by Joan Oquendo RN) Diabetes CAD (coronary artery disease) Dementia Hyperlipidemia Anesthesia complication Sister Lung disease Hypertension Thyroid disease Stroke Grandmother Grandfather Denies family history of Clotting disorder Bleeding disorder Cancer Social History Smoking and tobacco status: never smoked Alcohol intake: former Pertinent Exam Findings alert, oriented x 3 and clear to auscultation bilaterally Conscious Sedation Assessment PATIENT ASSESSED PRIOR TO SEDATION, WITH NO CHANGE NOTED: Yes AIRWAY EVAL/ANESTHESIA PLAN: ASA II, Risks, benefits & alternatives of sedation and/or procedure discussed and Patient agrees to continue as planned Recommendations Surgery/Procedure today Coding Level of Care Code Acute Dictating Machine Typist for Cholo Ruelas
[2020-12-17 15:19] LABS: Partial Thromboplastin Time 140.4 SECONDS (23.9-36.7)
--- NOTE | 2020-12-17 17:30 | PC.NURSE ---
Pt SBP increased to 180. Went over pt home medications, she states that she has not taken any of her home medications which include a BP medication. New orders received from Dr. Burns.
[2020-12-17] MEDS: aspirin 81 mg EC Tablet PO (18:30)
[2020-12-17] MEDS: ferrous sulfate EC 325 mg Tablet PO (18:31)
[2020-12-17] MEDS: clopidogrel 75 mg Tablet PO (18:32)
[2020-12-17] MEDS: pantoprazole DR 40 mg Tablet PO (18:32)
[2020-12-17] MEDS: atorvastatin 40 mg Tablet 80 MG PO (18:34)
[2020-12-17 18:46] LABS: Glucose Point of Care 244 mg/dL (70-110)
[2020-12-17] MEDS: lisinopril 20 mg Tablet 40 MG PO (18:49)
[2020-12-17] MEDS: hyDRALAzine 20 mg/mL INJ 1 mL 10 MG IVP (19:05)
[2020-12-17 19:31] LABS: Partial Thromboplastin Time 38.1 SECONDS (23.9-36.7)
--- NOTE | 2020-12-17 19:52 | PC.NURSE ---
Warehouse Picker called lab to let them know that the PTT needs to be redrawn do to it being pulled from the sheath, which the bag contained Heparin.
[2020-12-17 20:56] LABS: Partial Thromboplastin Time 25.2 SECONDS (23.9-36.7)
[2020-12-17 21:45] LABS: Glucose Point of Care 195 mg/dL (70-110)
[2020-12-17] MEDS: gabapentin 100 mg Capsule PO (21:52)
[2020-12-18] VITALS (31 sets, daily range): BP systolic 109–138; BP diastolic 63–92; PULSE 73–98; RESP 13–21; TEMP 36.6–36.7; O2SAT 93–98
[2020-12-18] MEDS: sodium chloride 0.9% 1,000 ML 100 ML IV (02:56)
[2020-12-18 04:28] LABS: Basophils % 0.5 %; Eosinophils # 0.1 10^3/uL (0.0-0.8); Eosinophils % 1.6 %; Hematocrit 34.7 % (37.0-47.0); Hemoglobin 10.7 g/dL (11.5-15.3); Lymphocytes # 1.4 10^3/uL (0.8-4.8); Lymphocytes % 17.1 %; Mean Corpuscular HGB Conc 30.8 g/dL (30.0-36.0); Mean Corpuscular Hemoglobin 27.3 pg (28.0-34.0); Mean Corpuscular Volume 88.5 fL (81-99); Monocytes # 0.8 10^3/uL (0.2-0.9); Monocytes % 9.3 %; Neutrophils # 5.87 10^3/uL (1.8-7.7); Neutrophils % 70.9 %; Nucleated Red Blood Cells % 0 %; Platelet Count 397 10^3/cmm (130-400); Red Blood Count 3.92 10^6/uL (4.1-5.3); Red Cell Distribution Width 16.1 % (12.1-15.1); White Blood Count 8.3 10^3/uL (4.0-10.0)
[2020-12-18 04:52] LABS: Anion Gap 12.4 (5-19); Blood Urea Nitrogen 18 mg/dL (8-23); Calcium 8.3 mg/dL (8.5-10.5); Carbon Dioxide 21 mmol/L (22-29); Chloride 108 mmol/L (98-107); Glucose 94 mg/dL (65-115); Osmolality Calculated 286 mOsm/kg (285-295); Potassium 4.4 mmol/L (3.5-5.1); Sodium 137 mmol/L (136-145)
[2020-12-18] MEDS: levothyroxine 112 mcg Tablet PO (05:48)
--- NOTE | 2020-12-18 07:21 | P.DS_ITS ---
Discharge Providers Date of Admission: 12/17/20 13:54 Date of Discharge: December 18, 2020 Attending Provider at Admission: Germania Burns MD Attending Provider at Discharge: Germania Burns MD Primary Care Provider: Isis Villasenor MD Reason for Visit Reason for Visit: peripheral diagnostic Hospital Course Hospital Course 75-year-old female past medical history significant for severe peripheral vascular disease for lifestyle limiting claudication and abnormal test underwent peripheral angiogram through right common femoral approach she was noted to have mid to distal SFA occlusion treated with multiple nondrug-eluting balloon angioplasty resulted in a good angiographic flow. Postop course remains uncomplicated. Site of the wound looks good no hematoma no bruising. We will follow her up in the clinic in 7 days. Patient has been given all the instruction. Physical Exam Narrative: EXAM NARRATIVE: GENERAL: Patient is alert, awake and oriented x3. NECK: No jugular vein distension. HEENT: No cyanosis. No icterus. No pallor. HEART: Regular S1 and S2. No murmur, rub or gallop. LUNGS: Clear to auscultate bilaterally. ABDOMEN: Soft, nontender and nondistended. Positive bowel sounds. No guarding, rebound or tenderness. CENTRAL NERVOUS SYSTEM: Grossly nonfocal. EXTREMITIES: Lower extremities without edema bilaterally. Pulses palpable in the lower extremities, both dorsalis pedis and posterior tibial. Discharge Data Data Completed and Pending: Pending at discharge Category Date Time Status CUTTER OUT request for service Routin e Exams 12/17/20 09:00 Taken Labs from last 24 hours 12/18/20 12/18/20 12/17/20 03:33 03:33 21:16 WBC 8.3 RBC 3.92 L Hgb 10.7 L Hct 34.7 L MCV 88.5 MCH 27.3 L MCHC 30.8 RDW 16.1 H Plt Count 397 MPV 9.0 Neut % (Auto) 70.9 Lymph % (Auto) 17.1 Ransom % (Auto) 9.3 Eos % (Auto) 1.6 Baso % (Auto) 0.5 Neut # (Auto) 5.87 Lymph # (Auto) 1.4 Ransom # (Auto) 0.8 Eos # (Auto) 0.1 Baso # (Auto) 0.0 Nucleated RBC % (a uto) 0 Nucleated RBCs # 0.0 APTT Sodium 137 Potassium 4.4 Chloride 108 H Carbon Dioxide 21 L Anion Gap 12.4 BUN 18 Creatinine 0.8 GFR Calculation Not Reportable Glucose 94 POC Glucose 195 H Calculated Osmolal ity 286 Calcium 8.3 L 12/17/20 12/17/20 12/17/20 20:23 18:55 18:39 WBC RBC Hgb Hct MCV MCH MCHC RDW Plt Count MPV Neut % (Auto) Lymph % (Auto) Ransom % (Auto) Eos % (Auto) Baso % (Auto) Neut # (Auto) Lymph # (Auto) Ransom # (Auto) Eos # (Auto) Baso # (Auto) Nucleated RBC % (a uto) Nucleated RBCs # APTT 25.2 38.1 H D Sodium Potassium Chloride Carbon Dioxide Anion Gap BUN Creatinine GFR Calculation Glucose POC Glucose 244 H Calculated Osmolal ity Calcium 12/17/20 12/17/20 12/17/20 14:35 09:45 09:45 WBC 7.7 RBC 4.17 Hgb 11.2 L Hct 35.8 L MCV 85.9 MCH 26.9 L MCHC 31.3 RDW 16.0 H Plt Count 460 H MPV 8.9 Neut % (Auto) 69.5 Lymph % (Auto) 19.4 Ransom % (Auto) 8.3 Eos % (Auto) 1.3 Baso % (Auto) 0.6 Neut # (Auto) 5.35 Lymph # (Auto) 1.5 Ransom # (Auto) 0.6 Eos # (Auto) 0.1 Baso # (Auto) 0.1 Nucleated RBC % (a uto) 0 Nucleated RBCs # 0.0 APTT 140.4 H Sodium 139 Potassium 5.0 Chloride 108 H Carbon Dioxide 21 L Anion Gap 15.0 BUN 17 Creatinine 0.8 GFR Calculation Not Reportable Glucose 186 H POC Glucose Calculated Osmolal ity 294 Calcium 8.9 Vitals: Last Vital Signs Temp 97.8 F 12/18/20 03:30 Pulse 76 12/18/20 06:15 Resp 16 12/18/20 06:15 BP 115/69 12/18/20 06:15 Pulse Ox 96 12/18/20 06:15 Discharge Plan Discharge Condition: Stable Prescriptions: Continued isosorbide mononitrate 30 mg tablet extended release 24 hr 30 mg PO QAM RF: 0 amlodipine 10 mg tablet 10 mg PO QAM RF: 0 aspirin [Adult Aspirin Regimen] 81 mg tablet,delayed release (DR/EC) 81 mg PO QPM RF: 0 atorvastatin [Lipitor] 80 mg tablet 80 mg PO QPM RF: 0 Lumigan 0.01 % drops 1 drop ophthalmic (eye) QDAY RF: 0 clopidogrel [Plavix] 75 mg tablet 75 mg PO QPM RF: 0 pantoprazole 20 mg tablet,delayed release (DR/EC) 40 mg PO QPM RF: 0 levothyroxine [Synthroid] 125 mcg tablet 112 mcg PO QAM RF: 0 loteprednol etabonate 0.5 % drops,suspension 1 drp ophthalmic (eye) DAILY RF: 0 lisinopril 40 mg tablet 40 mg PO DAILY RF: 0 ferrous sulfate 325 mg (65 mg iron) tablet 325 mg PO QPM RF: 0 triamterene-hydrochlorothiazid 37.5-25 mg tablet 1 tab PO DAILY RF: 0 prenat.vits,alcides,icp-ezwg-oeguh Tablet 1 tab PO DAILY RF: 0 ezetimibe [Zetia] 10 mg tablet 10 mg PO DAILY Qty: 90 RF: 3 Trulicity 1.5 mg/0.5 mL pen injector 1.5 mg SUBCUT .qweekly Qty: 2 RF: 3 insulin lispro [Humalog KwikPen Insulin] 100 unit/mL insulin pen 5 unit SUBCUT TID 90 Days Qty: 13.5 RF: 3 gabapentin 100 mg capsule 100 mg PO .qpm Qty: 90 RF: 3 insulin glargine 100 unit/mL (3 mL) insulin pen 15 unit SUBCUT QAM Qty: 15 RF: 3 metformin 500 mg tablet 500 mg PO BID 90 Days Qty: 180 RF: 3 Hold Instructions: Resume on 07/13/20. Will wait for the blood test report on 07/12/2020 and then decide Fosamax 70 mg tablet 70 mg PO DIRECTED RF: 0 Discharge Orders: Discharge Order (Routine); Ordered 12/18/20 Ordered By: Germania Burns Referrals: Afsaneh Randall MD [Physician] - (YOUR APPOINTMENT ON November WAS RESCHEDULED FOR ThursdayJanuary AT 1100. IF YOU HAVE ANY QUESTIONS OR NEED TO RESCHEDULE PLEASE CALL [phone].) Erwin Thomson FNP [Nurse Practitioner] - 7-10 days (YOU HAVE A FOLLOW UP APPOINTMENT WITH ERWIN THOMSON ON ThursdayNovember AT 1100. IF YOU HAVE ANY QUESTIONS OR NEED TO RESCHEDULE PLEASE CALL [phone].) Discharge Diet: Diabetic Patient Instructions: Coronary Artery Disease (DC), Hypertension (DC), Peripheral Vascular Angioplasty (DC) Activity Restrictions/Additional Instructions: Follow-up with Erwin Thomson cardiology nurse practitioner in 7 days. Follow-up with Dr. Burns in 6 to 8 weeks. Discharge Attestations Time Spent in Discharge Care*: less than 30 min Specific Discharge Activities: educating patient Quality Metrics Clinical Quality Measures During this hospital stay, did patient experience: None Coding Level of Care Code Established Pt Acute Chg FW DC note Patient Type Established History Expanded Problem Focused Exam Expanded Problem Focused Medical Decision Making Moderate Complexity
[2020-12-18 07:45] LABS: Glucose Point of Care 169 mg/dL (70-110)
[2020-12-18] MEDS: amlodipine 10 mg Tablet PO (08:04)
[2020-12-18] MEDS: isosorbide mononitrate ER 30 mg Tablet PO (08:04)
[2020-12-18] MEDS: lisinopril 20 mg Tablet 40 MG PO (08:04)
[2020-12-18] MEDS: ezetimibe 10 mg Tablet PO (08:07)
--- NOTE | 2020-12-18 09:52 | PC.CHAP ---
Pastoral Care Encounter/Spiritual Assessment Type of Contact [] Declined structural engineering technician visit [] Patient/Family/Request visit [] Outpatient visit [] Follow-up visit [] Physician referral [] Code/Alert [x] Routine visit [] Staff referral [] Actively dying [] Patient sleeping [] Family support [] [] Out of room [] Palliative care [] [] Receiving care in room [] Pre-surgical visit [] Trauma [] Long length of stay [x] ICU visit [] Other: Relational/Emotional Strength [] Patient feels connected with others/family/visitors/staff [] Distress [] Loneliness/isolation [] Abandonment Spirituality of Patient [] Person of Cassie [] Attends Muslim of their Cassie [] Believes in Prayer [] Reads Bible or Roman Catholic materials [] There are Spiritual issues to be addressed Poultry Grader Interventions [x] Prayer [x] Active listening [x] Non-anxious presence [x] Spiritual/emotional support [] Crisis/trauma care [] Spiritual counseling [] Bereavement support [] Provided bereavement packet [] Provided Bible/devotional materials [] Provided toy/stuffed animal, coloring book to patient or family member [] Provided Communion [] Anointing/[place] [] Salvation [x] Completed spiritual assessment [] Other: Impact on Illness or Injury [] Angry [] Fearful [] Anxious [] Often cries [] Exhaustion [] Unable to work [] Unable to attend spiritism [] Unable to walk/stand [] Unable to read [] Unable to drive [] Unable to eat/drink [] Unable to sleep [] Unable to be with family [] Patient intubated [] Other: Summary patient setting up in chair.. feeling better Time spent with patient 10 min
== END 2020-12-18 10:15 ==
LOC: CCL 09:04 → ICU 12-18 07:21
PROVIDERS: PCP Internal Medicine; Visit Provider Internal Medicine Cardiovascular Disease
DX: I70.202 Unspecified atherosclerosis of native arteries of extremities, left leg (principal); I70.92 Chronic total occlusion of artery of the extremities; I25.110 Atherosclerotic heart disease of native coronary artery with unstable angina pectoris; E11.9 Type 2 diabetes mellitus without complications; Z86.718 Personal history of other venous thrombosis and embolism; I10 Essential (primary) hypertension; E78.2 Mixed hyperlipidemia; M17.0 Bilateral primary osteoarthritis of knee
CPT/HCPCS: 36415; 36416; 37225; 75716; 80048; 82962; 85025; 85730; 96372; C1724; C1725; C1769; C1887; C1894; J0360; J1644; J1815; J2250; J3010; J3490; J7030; Q0163; Q9967

== ENCOUNTER → 2020-12-26 12:20 | Outpatient (BNVA) | payer MEDICARE, OTHER, SELFPAY | PROVIDERS: PCP Internal Medicine; Visit Provider Nurse Practitioner Family | DX: I73.9 Peripheral vascular disease, unspecified (principal) | CPT/HCPCS: 80048 ==

== ENCOUNTER → 2021-01-08 09:10 | Outpatient (BNVA) | payer MEDICARE, OTHER, SELFPAY | PROVIDERS: PCP Internal Medicine; Visit Provider Internal Medicine Cardiovascular Disease | DX: I25.10 Atherosclerotic heart disease of native coronary artery without angina pectoris (principal); I73.9 Peripheral vascular disease, unspecified | CPT/HCPCS: 80048 ==

== ENCOUNTER 2021-05-20 08:45 | Outpatient (CLI) | payer MEDICARE, OTHER, SELFPAY ==
[2021-05-20 09:30] LABS: Estmated Average Glucose 148; Hemoglobin A1C 6.8 % (4.0-6.0)
[2021-05-20 09:49] LABS: Free T4 Free Thyroxine 1.18 ng/dL (0.82-1.77); Thyroid Stimulating Hormone 0.54 uIU/mL (0.27-4.20)
== END 2021-05-20 08:46 | disposition home or self-care (01) ==
LOC: LAB 08:53
PROVIDERS: PCP Internal Medicine; Visit Provider Internal Medicine
DX: E11.65 Type 2 diabetes mellitus with hyperglycemia (principal); E03.9 Hypothyroidism, unspecified; E11.43 Type 2 diabetes mellitus with diabetic autonomic (poly)neuropathy
CPT/HCPCS: 36415; 83036; 84439; 84443

== ENCOUNTER 2021-06-06 13:56 | Outpatient (CLI) | payer MEDICARE, OTHER, SELFPAY ==
--- NOTE | 2021-06-06 14:03 | MM_ITS ---
WS: [id number] BILATERAL DIGITAL SCREENING MAMMOGRAPHY WITH CAD CLINICAL INFORMATION: SCREENING HISTORY: Screening mammogram. No current complaints. COMPARISON: February 01, 2020 TECHNIQUE: Bilateral CC and MLO views. FINDINGS: Scattered fibroglandular densities bilaterally. No suspicious focal mass, asymmetry, calcifications, or architectural distortion. No evidence of malignancy. Stable extensive tiny punctate calcifications both breasts. Stable vascular calcification. MM/[id number] IMPRESSION: BI-RADS: 2-Benign FOLLOW UP: 1 Year Follow-up Recommend return to annual screening mammography.
== END 2021-06-06 13:57 | disposition home or self-care (01) ==
PROVIDERS: PCP Internal Medicine; Visit Provider Internal Medicine
DX: Z12.31 Encounter for screening mammogram for malignant neoplasm of breast (principal)
CPT/HCPCS: 77067

== ENCOUNTER 2021-08-12 09:39 | Outpatient (CLI) | payer MEDICARE, OTHER, SELFPAY ==
[2021-08-12 10:23] LABS: Estmated Average Glucose 169; Hemoglobin A1C 7.5 % (4.0-6.0)
[2021-08-12 10:42] LABS: Chol HDL Ratio 3.91 mg/dL (0.0-4.40); Cholesterol 172 mg/dL (0-200); HDL Cholesterol 44 mg/dL (60-100); LDL Cholesterol Calculated 98 mg/dL (50-129); LDL HDL Ratio 2.23 RATIO (0.00-3.22); Thyroid Stimulating Hormone 0.24 uIU/mL (0.27-4.20); Triglycerides 150 mg/dL (0-150)
== END 2021-08-12 09:40 | disposition home or self-care (01) ==
LOC: LAB 09:41
PROVIDERS: PCP Internal Medicine; Visit Provider Internal Medicine
DX: E11.65 Type 2 diabetes mellitus with hyperglycemia (principal); E03.9 Hypothyroidism, unspecified; E87.5 Hyperkalemia; I25.10 Atherosclerotic heart disease of native coronary artery without angina pectoris
CPT/HCPCS: 36415; 80061; 83036; 84439; 84443

== ENCOUNTER → 2021-08-14 09:55 | Outpatient (BNVA) | payer MEDICARE, OTHER, SELFPAY | PROVIDERS: PCP Internal Medicine; Visit Provider Internal Medicine | DX: E11.65 Type 2 diabetes mellitus with hyperglycemia (principal); E11.43 Type 2 diabetes mellitus with diabetic autonomic (poly)neuropathy; E11.59 Type 2 diabetes mellitus with other circulatory complications; E11.40 Type 2 diabetes mellitus with diabetic neuropathy, unspecified; E11.22 Type 2 diabetes mellitus with diabetic chronic kidney disease; N18.30 Chronic kidney disease, stage 3 unspecified; E78.2 Mixed hyperlipidemia; E03.9 Hypothyroidism, unspecified; I25.10 Atherosclerotic heart disease of native coronary artery without angina pectoris; E87.5 Hyperkalemia; I73.9 Peripheral vascular disease, unspecified; M81.0 Age-related osteoporosis without current pathological fracture; Z79.4 Long term (current) use of insulin; Z79.84 Long term (current) use of oral hypoglycemic drugs; Z87.891 Personal history of nicotine dependence | CPT/HCPCS: 99214 ==

== ENCOUNTER → 2021-09-26 09:00 | Outpatient (BNVA) | payer MEDICARE, OTHER, SELFPAY | PROVIDERS: PCP Internal Medicine; Visit Provider Internal Medicine | DX: E11.65 Type 2 diabetes mellitus with hyperglycemia (principal); E11.22 Type 2 diabetes mellitus with diabetic chronic kidney disease; E11.43 Type 2 diabetes mellitus with diabetic autonomic (poly)neuropathy; E11.59 Type 2 diabetes mellitus with other circulatory complications; N18.30 Chronic kidney disease, stage 3 unspecified; E78.2 Mixed hyperlipidemia; E03.9 Hypothyroidism, unspecified; I25.10 Atherosclerotic heart disease of native coronary artery without angina pectoris; M81.0 Age-related osteoporosis without current pathological fracture; Z79.4 Long term (current) use of insulin; Z79.84 Long term (current) use of oral hypoglycemic drugs; Z87.891 Personal history of nicotine dependence | CPT/HCPCS: 99214; 99215 ==

== ENCOUNTER → 2021-11-26 09:13 | Outpatient (BNVA) | payer MEDICARE, OTHER, SELFPAY | PROVIDERS: PCP Internal Medicine; Visit Provider Internal Medicine | DX: E11.65 Type 2 diabetes mellitus with hyperglycemia (principal); E11.43 Type 2 diabetes mellitus with diabetic autonomic (poly)neuropathy; E11.59 Type 2 diabetes mellitus with other circulatory complications; E11.22 Type 2 diabetes mellitus with diabetic chronic kidney disease; N18.30 Chronic kidney disease, stage 3 unspecified; E03.9 Hypothyroidism, unspecified; E78.2 Mixed hyperlipidemia; I25.10 Atherosclerotic heart disease of native coronary artery without angina pectoris; M81.0 Age-related osteoporosis without current pathological fracture; I73.9 Peripheral vascular disease, unspecified; Z98.890 Other specified postprocedural states; Z79.4 Long term (current) use of insulin; Z79.84 Long term (current) use of oral hypoglycemic drugs; Z87.891 Personal history of nicotine dependence | CPT/HCPCS: 99214 ==

== ENCOUNTER 2022-04-15 12:45 | Outpatient (CLI) | payer MEDICARE, OTHER, SELFPAY ==
[2022-04-15 14:20] LABS: Estmated Average Glucose 169; Hemoglobin A1C 7.5 % (4.0-6.0)
[2022-04-15 14:29] LABS: Alanine Aminotransferase 18 U/L (0-33); Albumin Level 4.5 g/dL (3.5-5.2); Alkaline Phosphatase 92 U/L (35-105); Anion Gap 14.8 (5-19); Aspartate Amino Transferase 15 U/L (0-32); Blood Urea Nitrogen 14 mg/dL (8-23); Calcium 9.4 mg/dL (8.5-10.5); Carbon Dioxide 25 mmol/L (22-29); Chloride 104 mmol/L (98-107); Chol HDL Ratio 2.86 mg/dL (0.0-4.40); Cholesterol 143 mg/dL (0-200); Globulin 3.8 g/dL (1.3-4.6); Glucose 149 mg/dL (65-115); HDL Cholesterol 50 mg/dL (60-100); LDL Cholesterol Calculated 75 mg/dL (50-129); Osmolality Calculated 291 mOsm/kg (285-295); Potassium 4.8 mmol/L (3.5-5.1); Sodium 139 mmol/L (136-145); Thyroid Stimulating Hormone 0.75 uIU/mL (0.27-4.20); Total Bilirubin 0.2 mg/dL (0.15-1.2); Total Protein 8.3 g/dL (6.6-8.7); Triglycerides 88 mg/dL (0-150)
== END 2022-04-15 12:46 | disposition home or self-care (01) ==
PROVIDERS: PCP Internal Medicine; Visit Provider Internal Medicine
DX: E11.65 Type 2 diabetes mellitus with hyperglycemia (principal); E11.22 Type 2 diabetes mellitus with diabetic chronic kidney disease; E11.43 Type 2 diabetes mellitus with diabetic autonomic (poly)neuropathy; E11.59 Type 2 diabetes mellitus with other circulatory complications; E03.9 Hypothyroidism, unspecified; E78.2 Mixed hyperlipidemia; N18.30 Chronic kidney disease, stage 3 unspecified; I25.10 Atherosclerotic heart disease of native coronary artery without angina pectoris; M81.0 Age-related osteoporosis without current pathological fracture; I73.9 Peripheral vascular disease, unspecified; Z98.890 Other specified postprocedural states; Z87.891 Personal history of nicotine dependence; Z79.4 Long term (current) use of insulin; Z79.84 Long term (current) use of oral hypoglycemic drugs
CPT/HCPCS: 80053; 80061; 83036; 84439; 84443; 99214

== ENCOUNTER 2022-06-12 09:17 | Outpatient (CLI) | payer MEDICARE, OTHER, SELFPAY ==
[2022-06-12 10:43] LABS: Free T4 Free Thyroxine 0.82 ng/dL (0.82-1.77); Thyroid Stimulating Hormone 7.32 uIU/mL (0.27-4.20)
[2022-06-12 10:44] LABS: Estmated Average Glucose 180; Hemoglobin A1C 7.9 % (4.0-6.0)
== END 2022-06-12 09:18 | disposition home or self-care (01) ==
LOC: LAB 09:20
PROVIDERS: PCP Internal Medicine; Visit Provider Internal Medicine
DX: E03.9 Hypothyroidism, unspecified (principal); E11.65 Type 2 diabetes mellitus with hyperglycemia
CPT/HCPCS: 36415; 83036; 84439; 84443

== ENCOUNTER → 2022-06-17 14:06 | Outpatient (BNVA) | payer MEDICARE, OTHER, SELFPAY | PROVIDERS: PCP Internal Medicine; Visit Provider Internal Medicine | DX: E11.22 Type 2 diabetes mellitus with diabetic chronic kidney disease (principal); E11.65 Type 2 diabetes mellitus with hyperglycemia; E11.59 Type 2 diabetes mellitus with other circulatory complications; E11.43 Type 2 diabetes mellitus with diabetic autonomic (poly)neuropathy; I25.10 Atherosclerotic heart disease of native coronary artery without angina pectoris; E03.9 Hypothyroidism, unspecified; E78.2 Mixed hyperlipidemia; N18.30 Chronic kidney disease, stage 3 unspecified; M81.0 Age-related osteoporosis without current pathological fracture; Z98.890 Other specified postprocedural states; Z79.4 Long term (current) use of insulin; Z79.84 Long term (current) use of oral hypoglycemic drugs | CPT/HCPCS: 99214 ==

== ENCOUNTER → 2022-07-08 15:21 | Outpatient (BNVA) | payer MEDICARE, OTHER, SELFPAY | PROVIDERS: PCP Internal Medicine; Visit Provider Internal Medicine Cardiovascular Disease | DX: I25.10 Atherosclerotic heart disease of native coronary artery without angina pectoris (principal); E11.65 Type 2 diabetes mellitus with hyperglycemia; E11.59 Type 2 diabetes mellitus with other circulatory complications; E11.22 Type 2 diabetes mellitus with diabetic chronic kidney disease; I12.9 Hypertensive chronic kidney disease with stage 1 through stage 4 chronic kidney disease, or unspecified chronic kidney disease; N18.9 Chronic kidney disease, unspecified; Z79.4 Long term (current) use of insulin; Z79.84 Long term (current) use of oral hypoglycemic drugs; I73.9 Peripheral vascular disease, unspecified; I65.23 Occlusion and stenosis of bilateral carotid arteries; E03.9 Hypothyroidism, unspecified | CPT/HCPCS: 99214 ==

== ENCOUNTER 2022-08-14 11:41 | Outpatient (CLI) | payer MEDICARE, OTHER, SELFPAY ==
--- NOTE | 2022-08-14 12:00 | USCV_ITS ---
Marry Chatman Age: 76 Gender: F : 1945 Exam Date: 08/14/2022 12:09 Ordering Phys: Afsaneh Randall MD ([email or web address]) Technologist: TANYA [place] [facility] [place]: EVAL FOR CAROTID STENOSIS. H/O LT CEA Risk Factors: Previous Vascular Surgery: Right Brachial BP: / Left Brachial BP: / Right Left Velocity (cm/s) Spectral Plaque Velocity (cm/s) Spectral Plaque Syst/Diast Broadening Syst/Diast Broadening 62.90/ 13.20 Prox CCA 59.40 / 8.60 84.70/ 14.80 Mid CCA 58.10 / 10.30 52.00/ 11.70 Distal CCA 56.20 / 12.90 158.60/43.60 Prox ICA 68.40 / 11.70 69.10/ 22.50 Mid ICA 63.90 / 18.10 36.70/ 14.50 Distal ICA 41.30 / 11.70 121.00 ECA 62.20 1.87 ICA/CCA 1.15 Antegrade Vertebral Antegrade 41.10/ 14.20 cm/s 30.20/ 11.60 cm/s Tri Subclavian Tri 89.20 116.9 0 FINDINGS Dense plaques at the left bifurcation and proximal internal carotid artery. Moderate to heavy dense plaques at the right bifurcation and proximal internal carotid artery. Antegrade flow in the vertebral arteries bilaterally Normal Doppler flow velocities in the external carotid, vertebral and subclavian arteries bilaterally CONCLUSIONS Dense plaques at the left bifurcation and proximal internal carotid artery, suggesting less than 50% stenosis Moderate to heavy dense plaques at the right bifurcation and proximal internal carotid artery with a velocity elevation, suggesting 50 to 69% stenosis. No significant stenosis in the external carotid, subclavian or vertebral arteries, based on the above findings Compared to the study from 10/29/2020, there may not be a significant change Dr Afsaneh Randall MD [facility] (Electronically Signed) Final Date: 14 August 2022 19:23 S
--- NOTE | 2022-08-14 12:45 | USCV_ITS ---
Marry Chatman Age: 76 Gender: F : 1945 Exam Date: 08/14/2022 12:30 Ordering Phys: Afsaneh Randall MD ([email or web address]) Technologist: TANYA [place] [facility] [place]: PAD Risk Factors: Previous Vascular Surgery: RIGHT LEFT BP: 120.0 / 75.00 BP: 117.0/ 68.00 0 0 Waveform Velocity (cm/s) Velocity (cm/s) Waveform Triphasic 71.2 Iliac Prox 57.4 Biphasic Triphasic 85.5 Iliac Mid 80.5 Biphasic Triphasic 121.6 Iliac Distal 101.0 Biphasic Triphasic 120.2 DOUBLE CUTTER 130.5 Biphasic Biphasic 78.5 SFA Prox 88.9 Biphasic Biphasic 143.3 SFA Mid 216.5 Biphasic Biphasic 63.7 SFA Dist 127.0 Biphasic Biphasic 83.1 POP 50.9 Biphasic N/A 0.0 TRANSPORTATION SECURITY OFFICER 0.0 N/A Monophasic 14.5 DPA 13.1 Monophasic FINDINGS UNABLE TO OBTAIN BILAT ALIDA'S DUE TO NO FLOW Moderate to heavy diffused plaque in the superficial femoral arteries bilaterally. No Doppler flow signals in the posterior tibial arteries bilaterally Sluggish flow in the dorsalis pedis arteries bilaterally ABIs could not be obtained, in view of the extremely compromised blood flow in the ankle CONCLUSIONS 1. Features of severe peripheral artery disease mostly involving the infrapopliteal vessels bilaterally. 2. Possible total occlusion of the posterior tibial arteries bilaterally 3. Moderate to heavy plaques bilaterally in the superficial femoral arteries with Doppler flow velocity elevation, suggesting greater than 50% stenosis. Consider CTA or peripheral angiogram to further evaluate the peripheral arteries. ABIs could not be obtained bilaterally because of this severely compromised blood flow. Dr Afsaneh Randall MD [facility] (Electronically Signed) Final Date: 14 August 2022 19:31 S
== END 2022-08-14 11:42 | disposition home or self-care (01) ==
LOC: RAD 11:44
PROVIDERS: PCP Internal Medicine; Visit Provider Internal Medicine Cardiovascular Disease
DX: I73.9 Peripheral vascular disease, unspecified (principal); I65.23 Occlusion and stenosis of bilateral carotid arteries; I77.9 Disorder of arteries and arterioles, unspecified
CPT/HCPCS: 93880; 93925

== ENCOUNTER → 2022-08-20 11:10 | Outpatient (BNVA) | payer MEDICARE, OTHER, SELFPAY | PROVIDERS: PCP Internal Medicine; Visit Provider Specialist | DX: M18.0 Bilateral primary osteoarthritis of first carpometacarpal joints (principal) | CPT/HCPCS: 20600; 73130; 99213; J1100; J2795; J3301 ==

== ENCOUNTER 2022-09-18 08:49 | Outpatient (CLI) | payer MEDICARE, OTHER, SELFPAY ==
--- NOTE | 2022-09-18 08:59 | MM_ITS ---
WS: [id number] BILATERAL SCREENING DIGITAL TOMOSYNTHESIS MAMMOGRAM WITH CAD HISTORY: SCREENING COMPARISON: 06/06/2021, 02/01/2020, 03/08/2018 and 05/23/2015 Bilateral CC and MLO views with tomosynthesis and synthetic mammography submitted. Computer aided det ection analyzed. Breast composition: There are scattered areas of fibroglandular density. No suspicious masses, microc alcifications or architectural distortion. Patient has numerous calcifications within each breast, gr eatest on the RIGHT. Vascular calcifications also. These calcifications have been present since 2014. No significant progression. No associated soft tissue mass. MM/[id number] IMPRESSION: BI-RADS: 2-Benign FOLLOW UP: 1 Year Follow-up
== END 2022-09-18 08:50 | disposition home or self-care (01) ==
LOC: RAD 08:49
PROVIDERS: PCP Internal Medicine; Visit Provider Internal Medicine
DX: Z12.31 Encounter for screening mammogram for malignant neoplasm of breast (principal)
CPT/HCPCS: 77063; 77067

== ENCOUNTER → 2022-11-20 07:53 | Outpatient (BNVA) | payer MEDICARE, OTHER, SELFPAY | PROVIDERS: PCP Internal Medicine; Visit Provider Internal Medicine | DX: E11.65 Type 2 diabetes mellitus with hyperglycemia (principal); E11.22 Type 2 diabetes mellitus with diabetic chronic kidney disease; E11.43 Type 2 diabetes mellitus with diabetic autonomic (poly)neuropathy; E11.59 Type 2 diabetes mellitus with other circulatory complications; E03.9 Hypothyroidism, unspecified; E78.2 Mixed hyperlipidemia; I25.10 Atherosclerotic heart disease of native coronary artery without angina pectoris; M81.0 Age-related osteoporosis without current pathological fracture; Z98.890 Other specified postprocedural states; Z79.4 Long term (current) use of insulin; Z79.84 Long term (current) use of oral hypoglycemic drugs; Z79.890 Hormone replacement therapy | CPT/HCPCS: 99214 ==

== ENCOUNTER → 2022-11-26 11:08 | Outpatient (BNVA) | payer MEDICARE, OTHER, SELFPAY | PROVIDERS: PCP Internal Medicine; Visit Provider Specialist | DX: M65.312 Trigger thumb, left thumb (principal) | CPT/HCPCS: 99214 ==

== ENCOUNTER 2022-11-28 05:33 | Day surgery (SDC) | payer MEDICARE, OTHER, SELFPAY ==
[2022-11-27 10:46] VITALS: BMI 24.4
[2022-11-28 06:22] LABS: Glucose Point of Care 144 mg/dL (70-110)
[2022-11-28] MEDS: acetaminophen 1,000 MG/100 ML PIGGYBACK 400 MG IV (06:22)
[2022-11-28] MEDS: CELEcoxib 200 mg Capsule 400 MG PO (06:24)
--- NOTE | 2022-11-28 06:44 | ANES.PREANE2 ---
Pre-Anesthetic Assessment Height/Weight: Height 1.52 m Weight 56.699 kg Preop Diagnosis: Left hand trigger thumb Operation Date: 11/28/22 07:00 Proposed Procedures p LEFT THUMB TIRGGER FINGER RELEASE [id number], M65.30(Left) - Stephanie Gomes MD Familial anesthetic complications: PONV many years ago Was Beta Shaunna taken within 24 hours: N/A Was Clonidine taken within 24 hours: N/A Last intake: Intake Last Liquid Date 11/27/22 Last Liquid Time 23:00 Last Solid Date 11/27/22 Last Solid Time 23:00 Social No alcohol and No tobacco Exam alert, oriented x 3, clear to auscultation bilaterally and regular rate & rhythm Airway Mallampati: Class II Dentition: false CV/HEM Coronary Artery Disease (CABG and stents), Hypertension and Peripheral Vascular Disease Chronic Renal Insufficiency GI Gastroesophageal Reflux Disease Metabolic Diabetes Mellitus, Hyperlipidemia and Thyroid Disease Neuropsych b/ Carotid artery stenosis (R ICA 50 to 69%, L ICA < 50%) Anesthetic Plan ASA status: 4 Anesthesia: General Risk of > 500 ml blood loss (7ml/kg in children): No Medications/Allergies Home Medications Medication Instructions Recorded Confirmed Last Taken Type amlodipine 10 mg tablet 10 mg PO QAM 09/28/19 11/27/22 11/27/22 History aspirin 81 mg tablet,delayed 81 mg PO QPM 09/28/19 11/28/22 11/21/22 History release (Adult Aspirin Regimen) atorvastatin 80 mg tablet (Lipitor) 80 mg PO QPM 09/28/19 11/27/22 11/26/22 History bimatoprost 0.01 % eye drops 1 drop ophthalmic (eye) QDAY 09/28/19 11/27/22 11/27/22 History (Lumigan) clopidogrel 75 mg tablet (Plavix) 75 mg PO QPM 09/28/19 11/27/22 11/26/22 History pantoprazole 20 mg tablet,delayed 40 mg PO QPM 09/28/19 11/28/22 11/27/22 History release Fosamax 70 mg PO DIRECTED 07/06/20 11/27/22 11/25/22 History lisinopril 40 mg tablet 40 mg PO DAILY 08/09/20 11/27/22 11/27/22 07:00 History loteprednol etabonate 0.5 % eye 1 drp ophthalmic (eye) DAILY 08/09/20 11/28/22 11/27/22 History drops,suspension levothyroxine 125 mcg tablet 112 mcg PO QAM 08/23/20 11/27/22 11/27/22 07:00 History (Synthroid) prenat.vits,alcides,ndk-pync-ksobk 1 tab PO DAILY 08/23/20 11/28/22 12/16/20 09:00 History triamterene 37.5 1 tab PO DAILY 08/23/20 11/28/22 11/27/22 History mg-hydrochlorothiazide 25 mg tablet ezetimibe 10 mg tablet (Zetia) 10 mg PO DAILY #90 tabs 10/22/21 11/27/22 11/26/22 Rx isosorbide mononitrate 30 mg 30 mg PO QAM #90 tabs 10/22/21 11/27/22 11/27/22 07:00 Rx tablet,extended release 24 hr blood sugar diagnostic #400 ea 10/31/21 11/28/22 Unknown Rx gabapentin 100 mg capsule 100 mg PO .qpm #90 caps 01/28/22 11/27/22 11/26/22 20:00 Rx metformin 500 mg tablet 500 mg PO BID 90 days #180 tabs 01/28/22 11/28/22 11/27/22 Rx nitroglycerin 0.4 mg sublingual 0.4 mg sublingual Q5M PRN chest 01/28/22 11/28/22 Unknown Rx tablet (Nitrostat) pain #25 tabs dulaglutide 1.5 mg/0.5 mL 1.5 mg (0.5 mL) SUBCUT .qweekly #8 01/29/22 11/27/22 11/25/22 Rx subcutaneous pen injector mL (Trulicity) insulin lispro 100 unit/mL See Rx Instructions .Route 01/29/22 11/27/22 11/26/22 Rx subcutaneous solution (Humalog .COMPLEX #30 mL U-100 Insulin) insulin pump cart,cont inf,BT #10 ea 09/26/22 11/28/22 Unknown Rx (Omnipod Dash Pods (Gen 4) subcutaneous cartridge) Allergies Allergy/AdvReac Type Severity Reaction Status Date / Time codeine Allergy ALGY-Difficulty Verified 11/28/22 06:11 Breathing Opioids - Morphine Analogues Allergy ALGY-Hives Verified 11/28/22 06:11 Fdshnht-VWG-ZjY Reductase Allergy ALGY-Rash Verified 11/28/22 06:11 Inhibitor [Jekmhzk-Rau-Zwl Reductase Inhibitor] [facility] Anesthesia Medical History Atherosclerotic heart disease of [place] coronary artery without angina pectoris Bilateral carotid artery stenosis CAD (coronary artery disease) Diabetes mellitus Hx of deep venous thrombosis Hypertension Leg pain, bilateral Mixed hyperlipidemia Osteoarthritis of knees, bilateral Osteoarthritis, chronic Osteoporosis Peripheral vascular disease Surgical History H/O heart bypass surgery History of PTCA History of repair of hiatal hernia History of tonsillectomy Hx of hysterectomy Family History Sister Anesthesia complication Grandmother Stroke Grandfather Stroke Other CAD (coronary artery disease) Dementia Diabetes Hyperlipidemia Hypertension Lung disease Thyroid disease Denies family history of Clotting disorder Bleeding disorder Cancer Social History Smoking and tobacco status: never smoked Alcohol intake: former Data Anesthesia Cardiac Studies: No Data to Display
--- NOTE | 2022-11-28 06:52 | P.HPUD_ITS ---
Surgery/Procedure H&P Update DATE OF PROCEDURE: November 28, 2022 DATE H&P PERFORMED: 11/26/22 H&P UPDATE INFORMATION: I have reviewed H&P completed within last 30 days, I have examined patient prior to procedure, No changes to prior documentation and [place] [facility] [place] date indicated PREOP DIAGNOSIS: Left hand trigger thumb PLANNED PROCEDURE: Operation Date: 11/28/22 07:00 Proposed Procedures p LEFT THUMB TRIGGER FINGER RELEASE [id number], M65.30(Left) - Stephanie Gomes MD Related Problem List Diagnoses (1) Trigger finger of left thumb:
[2022-11-28] MEDS: sodium chloride 0.9% 1,000 ML 30 ML IV (06:54)
[2022-11-28] MEDS: ceFAZolin 2,000 MG in sodium chloride 0.9% (plus) 50 ML 100 MG IV (06:59)
[2022-11-28 07:49] VITALS: BP 120/64; PULSE 72; RESP 11; TEMP 36.1; O2SAT 100
[2022-11-28 07:54] VITALS: BP 120/64; PULSE 73; RESP 18; TEMP 36.1; O2SAT 100
[2022-11-28 07:58] VITALS: BP 127/76; PULSE 73; RESP 18; TEMP 36.3; O2SAT 97
--- NOTE | 2022-11-28 08:03 | P.OP_ITS ---
Operative Report Date of procedure: November 28, 2022 Pre-op diagnosis: Left hand trigger thumb Post-op diagnosis: Left hand trigger thumb Procedure done: Left trigger thumb release Pathology: none sent Surgeon: Stephanie Gomes Heel Slugger: None Anesthesia: General (Intubated, ASA 4) Estimated blood loss (mL): 2 Tourniquet time (min): 21 (At 250 mmHg) IV fluids (mL): 400 Urine output (mL): 0 (No Noguera) Complications: None Findings: Significant deformity at the base of the thumb secondary to degenerative osteoarthritis with very tight, but thinned, A1 crista Condition: stable Disposition: PACU (Then return to same-day surgery for discharge to home) Brief History: Marry Chatman is an established 77 year old female patient here today for left trigger thumb release. Patient states that she did follow through with her referral to Dr. 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 Patient notes that her primary concern today is of triggering of her left thumb.? Otherwise, she seems to be doing well from the surgery with Dr. Gandara, but she does not want to travel the distance.? Patient has had cortisone injections in the past and state that they are no longer working for her.? Surgical options were discussed with her in clinic, and she wished to proceed. She was unable to perform routine activities of daily living. The thumb was quite painful, and she wished to proceed a soon as possible. Procedure: Patient was brought to the operating theater. She was placed on the operating room table. Patient was administered a general anesthetic per ET tube, ASA 4. She also was given Ancef 2 g prophylactically preoperatively. A tourniquet was placed high on the arm and was elevated after exsanguination. Tourniquet time was 21 minutes. Surgical pause was performed prior to commencement of the surgical procedure. At the time of the surgical pause we identified the site and side of surgery as well as equipment availability. We also confirmed the patient's identity and appropriate administration of IV antibiotics. Following the surgical pause, an incision was made proximally along the metacarpal phalangeal crease of the thumb. Dissection continued through the skin to the subcutaneous tissues using a scalpel. Blunt dissection was then utilized to spread soft tissues and allow access to the A1 crista. It was then incised longitudinally and sharply using a knife. This was accomplished without difficulty and atraumatically. Once the A1 crista was released, tendons were brought up out of the wound and evaluated. There were no gross masses or evidence of significant degenerative change within the tendons. Tendons were returned to normal position. We then irrigated the wound and subsequently closed it with 3-0 nylon with an interrupted mattress type suture. Prior to closure of the wound, the wound was injected with bupivacaine into the subcutaneous tissues as a local anesthetic. Sterile dressing was then placed consisting of Dermabond, OpSite, fluffed fluffs, sterile soft roll, and an Nikhil wrap. The patient was returned to recovery in satisfactory condition. She will be discharged home to follow-up with me in the office. There were no complications and no specimens. Related Problem List Diagnoses (1) Trigger finger of left thumb:
[2022-11-28 08:17] VITALS: BP 131/68; PULSE 76; RESP 18; O2SAT 98
--- NOTE | 2022-11-28 11:38 | ANE.PACU2 ---
Inpatient post-anesthesia follow up: Airway intact: Yes Vital signs: Temperature 97.4 F Pulse Rate 76 Respiratory Rate 18 Blood Pressure 131/68 Pulse Oximetry 98 Oxygen Delivery Me thod Room Air Oxygen Flow Rate 6 Fraction of Inspir ed Oxygen Hydration adequate: Yes Nausea and vomiting: No Pain level: 1 Mental status: Baseline
== END 2022-11-28 08:35 | disposition home or self-care (01) ==
PROVIDERS: PCP Internal Medicine; Visit Provider Specialist
PROC: (CPT 26055; principal; 2022-11-28 07:00)
DX: M65.312 Trigger thumb, left thumb (principal); I25.10 Atherosclerotic heart disease of native coronary artery without angina pectoris; Z95.1 Presence of aortocoronary bypass graft; Z95.5 Presence of coronary angioplasty implant and graft; I10 Essential (primary) hypertension; K21.9 Gastro-esophageal reflux disease without esophagitis; E11.9 Type 2 diabetes mellitus without complications; E78.5 Hyperlipidemia, unspecified; Z79.82 Long term (current) use of aspirin; Z79.4 Long term (current) use of insulin; Z86.718 Personal history of other venous thrombosis and embolism
CPT/HCPCS: 26055; 36416; 82962; A4216; J0131; J0690; J2704; J3010; J3490; J7030

== ENCOUNTER → 2022-12-12 09:43 | Outpatient (BNVA) | payer MEDICARE, OTHER, SELFPAY | PROVIDERS: PCP Internal Medicine; Visit Provider Nurse Practitioner Family | DX: Z98.890 Other specified postprocedural states (principal) | CPT/HCPCS: 99024 ==

== ENCOUNTER → 2023-02-11 08:40 | Outpatient (BNVA) | payer MEDICARE, OTHER, SELFPAY | PROVIDERS: PCP Internal Medicine; Visit Provider Internal Medicine | DX: E11.65 Type 2 diabetes mellitus with hyperglycemia (principal); E11.40 Type 2 diabetes mellitus with diabetic neuropathy, unspecified; E11.22 Type 2 diabetes mellitus with diabetic chronic kidney disease; E11.43 Type 2 diabetes mellitus with diabetic autonomic (poly)neuropathy; E11.59 Type 2 diabetes mellitus with other circulatory complications; E03.9 Hypothyroidism, unspecified; E78.2 Mixed hyperlipidemia; I25.10 Atherosclerotic heart disease of native coronary artery without angina pectoris; M81.0 Age-related osteoporosis without current pathological fracture; Z98.890 Other specified postprocedural states; I73.9 Peripheral vascular disease, unspecified; N18.30 Chronic kidney disease, stage 3 unspecified; Z79.4 Long term (current) use of insulin; Z79.84 Long term (current) use of oral hypoglycemic drugs; Z87.440 Personal history of urinary (tract) infections; Z79.890 Hormone replacement therapy | CPT/HCPCS: 99214 ==

== ENCOUNTER → 2023-04-30 16:16 | Outpatient (BNVA) | payer MEDICARE, OTHER, SELFPAY | PROVIDERS: PCP Internal Medicine; Visit Provider Internal Medicine | DX: E11.65 Type 2 diabetes mellitus with hyperglycemia (principal); E03.9 Hypothyroidism, unspecified; E11.22 Type 2 diabetes mellitus with diabetic chronic kidney disease; E11.43 Type 2 diabetes mellitus with diabetic autonomic (poly)neuropathy; E11.59 Type 2 diabetes mellitus with other circulatory complications; E78.2 Mixed hyperlipidemia; I25.10 Atherosclerotic heart disease of native coronary artery without angina pectoris; M81.0 Age-related osteoporosis without current pathological fracture; Z98.890 Other specified postprocedural states; Z79.4 Long term (current) use of insulin; Z79.84 Long term (current) use of oral hypoglycemic drugs; Z79.890 Hormone replacement therapy; N18.30 Chronic kidney disease, stage 3 unspecified | CPT/HCPCS: 36415; 84439; 84443; 99214 ==

== ENCOUNTER 2024-04-08 16:18 | Emergency (ER) | payer MEDICARE, OTHER, SELFPAY ==
--- NOTE | 2024-04-08 16:16 | ECG_ITS ---
[facility] Test Date: 2024-04-08 Pat Name: Marry Chatman Department: Room: Gender: Female [employer]: : 1945 Requested By: Justin Ellsworth Order Number: [id number] Lenin MD: Milton Vazquez M.D. Measurements Intervals [place] Rate: 57 P: 41 VT: 174 QRS: -5 QRSD: 99 T: 58 QT: 481 QTc: 472 Interpretive Statements SINUS BRADYCARDIA POSSIBLE LEFT ATRIAL ENLARGEMENT [-0.1mV P-WAVE IN V1/V2] POSSIBLE LEFT VENTRICULAR HYPERTROPHY [VOLTAGE CRITERIA PLUS LAE OR QRS WIDENING] NONSPECIFIC T-WAVE ABNORMALITY PROLONGED QT INTERVAL Compared to ECG 08/29/2015 13:28:00 Prolonged QT interval now present Sinus rhythm no longer present T-wave abnormality still present Electronically Signed On 04-10-2024 9:11:27 CDT by Milton Vazquez M.D. [email or web address].[employer]/store/NU/[id number] f
[2024-04-08 16:19] VITALS: BP 56/38
[2024-04-08] MEDS: sodium chloride 0.9% 1,000 ML 999 ML IV (16:23)
[2024-04-08] MEDS: norepinephrine 4 MG/250 ML BAG (16:23)
[2024-04-08] MEDS: heparin 5,000 unit/mL INJ 1 mL 4000 UNIT IVP (16:30)
--- NOTE | 2024-04-08 16:30 | ECG_ITS ---
[facility] Test Date: 2024-04-08 Pat Name: Marry Chatman Department: Room: [facility] Gender: Female Policy Checker: : 1945 Requested By: Justin Ellsworth Order Number: [id number] Lenin MD: Milton Vazquez M.D. Measurements Intervals [place] Rate: 53 P: 52 MI: 185 QRS: 5 QRSD: 93 T: 68 QT: 494 QTc: 465 Interpretive Statements SINUS BRADYCARDIA POSSIBLE LEFT ATRIAL ENLARGEMENT [-0.1mV P-WAVE IN V1/V2] NONSPECIFIC T-WAVE ABNORMALITY PROLONGED QT INTERVAL Compared to ECG 08/29/2015 13:28:00 Prolonged QT interval now present Sinus rhythm no longer present T-wave abnormality still present Electronically Signed On 04-08-2024 18:37:03 CDT by Milton Vazquez M.D. [email or web address].[employer]/store/NU/[id number] f
--- NOTE | 2024-04-08 16:33 | W.ED.CHESTPA ---
HPI - Chest Pain General: Chief Complaint: Chest Pain Stated Complaint: stemi alert Time Seen by Provider: 04/08/24 16:30 History of Present Illness: 78-year-old female presents to the emergency room as a STEMI alert from the field she has ST elevation in 1 aVL with some reciprocal changes on the field EKG with a resolved at the time she arrived here symptoms began while at rest at 1430 which is approximately an hour and 15 minutes prior to arrival. She has a history of coronary artery disease she previously had a STEMI had multiple stents and has had a CABG. She was given 4 mg of Zofran to sublingual nitro and 324 of aspirin and route on arrival here she still reporting a chest pain of 5 out of 10 she is diaphoretic with pain radiating to her neck and her back. She does state that the chest pain has decreased in intensity. When she was initially encountered in the field her blood pressure was 230 systolic at the time her EKG was done. Shortly after arrival here her blood pressure decreased markedly but she came severely hypotensive and more diaphoretic. She did not report a change in her chest pain but was somewhat lethargic. Associated symptoms: Deny abdominal pain, dyspnea or fever(s) Related Data Home Medications Medication Instructions Recorded Confirmed amlodipine 10 mg tablet 10 mg PO QAM 09/28/19 04/30/23 aspirin 81 mg tablet,delayed 81 mg PO QPM 09/28/19 04/30/23 release (Adult Aspirin Regimen) atorvastatin 80 mg tablet (Lipitor) 80 mg PO QPM 09/28/19 04/30/23 bimatoprost 0.01 % eye drops 1 drop ophthalmic (eye) QDAY 09/28/19 04/30/23 (Lumigan) clopidogrel 75 mg tablet (Plavix) 75 mg PO QPM 09/28/19 04/30/23 pantoprazole 20 mg tablet,delayed 40 mg PO QPM 09/28/19 04/30/23 release Fosamax 70 mg PO DIRECTED 07/06/20 04/30/23 lisinopril 40 mg tablet 40 mg PO DAILY 08/09/20 04/30/23 loteprednol etabonate 0.5 % eye 1 drp ophthalmic (eye) DAILY 08/09/20 04/30/23 drops,suspension levothyroxine 125 mcg tablet 112 mcg PO QAM 08/23/20 04/30/23 (Synthroid) prenat.vits,alcides,vsv-tqyo-vnlln 1 tab PO DAILY 08/23/20 04/30/23 triamterene 37.5 1 tab PO DAILY 08/23/20 04/30/23 mg-hydrochlorothiazide 25 mg tablet Previous Rx's Medication Instructions Recorded isosorbide mononitrate 30 mg 30 mg PO QAM #90 tabs 10/22/21 tablet,extended release 24 hr blood sugar diagnostic #400 ea 10/31/21 nitroglycerin 0.4 mg sublingual 0.4 mg sublingual Q5M PRN chest 01/28/22 tablet (Nitrostat) pain #25 tabs insulin lispro 100 unit/mL 100 unit SUBCUT DAILY #10 mL 02/11/23 subcutaneous solution (Humalog U-100 Insulin) dulaglutide 1.5 mg/0.5 mL 1.5 mg (0.5 mL) SUBCUT .qweekly #8 04/03/23 subcutaneous pen injector mL (Trulicity) ezetimibe 10 mg tablet (Zetia) 10 mg PO DAILY #90 tabs 04/03/23 gabapentin 100 mg capsule 100 mg PO .qpm #90 caps 04/03/23 insulin lispro 100 unit/mL See Rx Instructions .Route 04/03/23 subcutaneous solution (Humalog .COMPLEX #30 mL U-100 Insulin) metformin 500 mg tablet 500 mg PO BID 90 days #180 tabs 04/03/23 insulin pump controller (Omnipod #1 ea 04/13/23 DASH PDM Kit (Gen 4)) insulin pump cart,cont inf,BT #10 ea 10/20/23 (Omnipod Dash Pods (Gen 4) subcutaneous cartridge) Allergies Allergy/AdvReac Type Severity Reaction Status Date / Time codeine Allergy ALGY-Difficulty Verified 04/30/23 13:48 Breathing Opioids - Morphine Analogues Allergy ALGY-Hives Verified 04/30/23 13:48 Uciauuo-RKU-RfC Reductase Allergy ALGY-Rash Verified 04/30/23 13:48 Inhibitor [Wgkwkxs-Woy-Ykc Reductase Inhibitor] Review of Systems Const: Denies: fever(s) or chills Card: Reports: chest pain Resp: Denies: dyspnea GI: Denies: abdominal pain : Denies: dysuria, urinary frequency or urinary urgency Musc: Denies: neck pain or back pain Skin/Breast: Denies: rash PFSH ED PFSH: Medical History Osteoporosis Atherosclerotic heart disease of [place] coronary artery without angina pectoris Hx of deep venous thrombosis Leg pain, bilateral Mixed hyperlipidemia Osteoarthritis, chronic Bilateral carotid artery stenosis Hypertension CAD (coronary artery disease) Peripheral vascular disease Diabetes mellitus Osteoarthritis of knees, bilateral Surgical History History of PTCA Hx of hysterectomy History of tonsillectomy History of repair of hiatal hernia H/O heart bypass surgery Family History Sister Anesthesia complication Grandmother Stroke Grandfather Stroke Other CAD (coronary artery disease) Dementia Diabetes Hyperlipidemia Hypertension Lung disease Thyroid disease Denies family history of Clotting disorder Bleeding disorder Cancer Social History Smoking and tobacco/nicotine status: never used tobacco/nicotine Alcohol intake: former Substance/Drug Use: never Physical Exam Const: GENERAL APPEARANCE: cooperative ORIENTATION/CONSCIOUSNESS: Yes awake, Yes oriented to person, Yes oriented to place and Yes oriented to time HENMT: COMMON NORMALS: normocephalic, atraumatic and hearing grossly normal bilaterally HEAD & SCALP: normocephalic and atraumatic Resp: COMMON NORMALS: normal respiratory effort, No retractions, No use of accessory muscles and clear to auscultation bilaterally AUSCULTATION: clear to auscultation bilaterally Cardio: COMMON NORMALS: regular rate, regular rhythm and No murmurs present (Cardio) RATE: regular rate RHYTHM: regular rhythm GI: COMMON NORMALS: Soft to palpation and No hepatosplenomegaly present AUSCULTATION: Yes normoactive bowel sounds PALPATION: Yes Soft to palpation, No Tenderness to palpation present (GI), No Guarding due to palpation present (GI) and Yes No hepatosplenomegaly present Extremity: COMMON NORMALS: normal to inspection, capillary refill normal, no clubbing, cyanosis or edema, no calf tenderness and no pedal edema Neuro: SENSORIUM/ORIENTATION: Yes oriented to person, Yes oriented to place and Yes oriented to time Skin: COMMON NORMALS: no rashes or lesions noted GENERAL SKIN EXAM: no rashes or lesions noted Course Vital Signs: Vital signs: Vital Signs Respiratory Rate 18 04/08/24 17:28 Blood Pressure 56/38 04/08/24 16:19 Fraction of Inspir ed Oxygen 100 04/08/24 17:28 MDM - Chest Pain Medical Decision Making Patient presents with an acute STEMI. EKG reviewed. He will EKG showed STEMI ours did as well. We called a STEMI overhead doctor Taylor stokes and seen the patient patient initially began to get better then worsened again her pressure decreased. She has received heparin and Plavix and aspirin. She will proceed develop directly to the Band Tacker. Medical Records I reviewed the patient's medical records. Lab Data I reviewed the patient's lab results. 04/08/24 16:41 04/08/24 17:10 Laboratory Results WBC 10.10 10^3/uL (3.29-11.43) 04/08/24 16:41 RBC 2.95 10^6/uL (3.85-5.65) L 04/08/24 16:41 Hgb 8.60 g/dL (11.27-16.99) L 04/08/24 16:41 Hct 27.3 % (36-47) L 04/08/24 16:41 MCV 92.5 fl (85-98) 04/08/24 16:41 MCH 29.2 pg (27-33) 04/08/24 16:41 MCHC 31.5 g/dL (30-55) 04/08/24 16:41 RDW 15.2 % (12.1-15.1) H 04/08/24 16:41 Plt Count 274 10^3/cmm (157-399) 04/08/24 16:41 MPV 10.5 fL (7.4-10.4) H 04/08/24 16:41 Neut % (Auto) 52.0 % 04/08/24 16:41 Lymph % (Auto) 40.6 % 04/08/24 16:41 [place] % (Auto) 6.1 % 04/08/24 16:41 Eos % (Auto) 0.6 % 04/08/24 16:41 Baso % (Auto) 0.4 % 04/08/24 16:41 Neut # (Auto) 5.25 10^3/uL (1.8-7.7) 04/08/24 16:41 Lymph # (Auto) 4.1 10^3/uL (0.8-4.8) 04/08/24 16:41 [place] # (Auto) 0.6 10^3/uL (0.2-0.9) 04/08/24 16:41 Eos # (Auto) 0.1 10^3/uL (0.0-0.8) 04/08/24 16:41 Baso # (Auto) 0.0 10^3/uL (0.0-0.1) 04/08/24 16:41 Nucleated RBC % (auto) 0 % 04/08/24 16:41 Nucleated RBCs # 0.0 /100WBC 04/08/24 16:41 Specimen Type Arterial 04/08/24 17:54 ABG pH 7.07 (7.35-7.45) L* 04/08/24 17:54 ABG pCO2 43.7 mmHg (35-45) 04/08/24 17:54 ABG pO2 57.2 mmHg (80.0-100.0) L 04/08/24 17:54 ABG HCO3 12.6 mmol/L (22-26) L 04/08/24 17:54 ABG O2 Saturation 82.4 04/08/24 17:54 ABG Base Excess -16.7 mmol/L (-2.0-2.0) L 04/08/24 17:54 Shree Test N/a 04/08/24 17:54 A-a O2 Gradient 5.1 mmHg (5-10) 04/08/24 17:54 Hematocrit 30.6 % (37-47) L 04/08/24 17:54 Hgb O2 Saturation 81.0 % (95-100) L 04/08/24 17:54 Carboxyhemoglobin 0.5 %THgb (0.4-20.1) 04/08/24 17:54 Methemoglobin 1.2 % (0.4-1.5) 04/08/24 17:54 Total Hemoglobin 10.0 g/dL (12-16) L 04/08/24 17:54 Sodium 127.0 mmol/L (131-143) L 04/08/24 17:54 Potassium 3.8 mmol/L (3.5-5.0) 04/08/24 17:54 Glucose 290.0 mg/dL (70-115) H 04/08/24 17:54 Ionized Calcium 1.0 mmol/L (1.1-1.4) L 04/08/24 17:54 O2 Delivery Device Ambu 04/08/24 17:54 [employer] Delivery Driver ID [id number] 04/08/24 17:54 Sodium 138 mmol/L (136-145) 04/08/24 17:10 Potassium 4.4 mmol/L (3.5-5.1) 04/08/24 17:10 Chloride 112 mmol/L (98-107) H 04/08/24 17:10 Carbon Dioxide 14 mmol/L (22-29) L 04/08/24 17:10 Anion Gap 16.4 (5-19) 04/08/24 17:10 BUN 19 mg/dL (8-23) 04/08/24 17:10 Creatinine 0.9 mg/dL (0.5-0.9) 04/08/24 17:10 GFR Calculation Not Reportable 04/08/24 17:10 Glucose 275 mg/dL (65-115) H 04/08/24 17:10 Calculated Osmolality 298 mOsm/kg (285-295) H 04/08/24 17:10 Lactic Acid 2.0 mmol/L (0.5-2.2) 04/08/24 17:10 Calcium 6.5 mg/dL (8.5-10.5) L 04/08/24 17:10 Magnesium 1.4 mg/dL (1.7-2.3) L 04/08/24 17:10 Total Bilirubin 0.2 mg/dL (0.15-1.2) 04/08/24 17:10 AST 35 U/L (0-32) H 04/08/24 17:10 ALT 27 U/L (0-33) 04/08/24 17:10 Alkaline Phosphatase 90 U/L (35-105) 04/08/24 17:10 Troponin T Baseline 50 ng/L (0-10) H 04/08/24 17:10 Total Protein 4.7 g/dL (6.6-8.7) L 04/08/24 17:10 Albumin 2.9 g/dL (3.5-5.2) L 04/08/24 17:10 Globulin 1.8 g/dL (1.3-4.6) 04/08/24 17:10 Lipase 50 U/L (13-60) 04/08/24 17:10 All radiology interpretation(s) finalized by discharge Discharge Plan Discharge Patient Disposition: Clinical Impression: NSTEMI (non-ST elevated myocardial infarction), Cardiogenic shock Condition: Prescriptions: No Action amlodipine 10 mg tablet 10 mg PO QAM aspirin [Adult Aspirin Regimen] 81 mg tablet,delayed release (DR/EC) 81 mg PO QPM atorvastatin [Lipitor] 80 mg tablet 80 mg PO QPM Lumigan 0.01 % drops 1 drop ophthalmic (eye) QDAY clopidogrel [Plavix] 75 mg tablet 75 mg PO QPM pantoprazole 20 mg tablet,delayed release (DR/EC) 40 mg PO QPM levothyroxine [Synthroid] 125 mcg tablet 112 mcg PO QAM loteprednol etabonate 0.5 % drops,suspension 1 drp ophthalmic (eye) DAILY lisinopril 40 mg tablet 40 mg PO DAILY triamterene-hydrochlorothiazid 37.5-25 mg tablet 1 tab PO DAILY prenat.vits,alcides,xhw-hidn-ihnph Tablet 1 tab PO DAILY insulin lispro [Humalog U-100 Insulin] 100 unit/mL solution 100 unit SUBCUT DAILY Qty: 10 2RF isosorbide mononitrate 30 mg tablet extended release 24 hr 30 mg PO QAM Qty: 90 1RF (DME) blood sugar diagnostic Strip See Rx Instructions .Route Qty: 400 3RF Rx Instructions: Check blood sugar 4 times a day. nitroglycerin [Nitrostat] 0.4 mg tablet, sublingual 0.4 mg sublingual Q5M PRN (Reason: chest pain) Qty: 25 1RF Rx Instructions: do not exceed 3 doses per episode ezetimibe [Zetia] 10 mg tablet 10 mg PO DAILY Qty: 90 4RF Rx Instructions: Take one tablet by mouth daily Trulicity 1.5 mg/0.5 mL pen injector 1.5 mg SUBCUT .qweekly Qty: 8 3RF Rx Instructions: Administer 1.5 mg subcut weekly. insulin lispro [Humalog U-100 Insulin] 100 unit/mL solution See Rx Instructions .ROUTE .COMPLEX Qty: 30 3RF Rx Instructions: Humalog for pump 100 units max dose; gabapentin 100 mg capsule 100 mg PO .qpm Qty: 90 3RF metformin 500 mg tablet 500 mg PO BID 90 Days Qty: 180 3RF Hold Instructions: Resume on 07/13/20. Will wait for the blood test report on 07/12/2020 and then decide (DME) Omnipod DASH PDM Kit (Gen 4) Misc See Rx Instructions .Route Qty: 1 0RF Rx Instructions: As directed (DME) Omnipod Dash Pods (Gen 4) Cartridge See Rx Instructions .Route Qty: 10 3RF Rx Instructions: As directed, change pod every 3 days Fosamax 70 mg tablet 70 mg PO DIRECTED Rx Instructions: mondays am Referrals: Isis Villasenor MD [Primary Care Provider] - Coding Level of Care Code ED Spindle Carver for Cholo Ruelas
[2024-04-08] MEDS: metoclopramide 5 mg/mL SDV 2 mL 10 MG IVP (16:34)
--- NOTE | 2024-04-08 16:40 | ECG_ITS ---
[facility] Test Date: 2024-04-08 Pat Name: Marry Chatman Department: Room: Gender: Female Quality Intern: : 1945 Requested By: Justin Ellsworth Order Number: [id number] Lenin MD: Milton Vazquez M.D. Measurements Intervals [place] Rate: 69 P: 58 AK: 152 QRS: -9 QRSD: 84 T: -16 QT: 443 QTc: 478 Interpretive Statements SINUS RHYTHM POSSIBLE LEFT ATRIAL ENLARGEMENT [-0.1mV P-WAVE IN V1/V2] LOW QRS VOLTAGE IN PRECORDIAL LEADS [QRS DEFLECTION < 1.0 mV IN CHEST LEADS] POSSIBLE RIGHT VENTRICULAR CONDUCTION DELAY [RSR (QR) IN V1/V2] ST ELEVATION IN LATERAL LEADS PROLONGED QT INTERVAL Compared to ECG 04/08/2024 16:20:38 Low QRS voltage now present Sinus bradycardia no longer present T-wave abnormality still present Electronically Signed On 04-08-2024 18:41:24 CDT by Milton Vazquez M.D. [email or web address]/store/NU/[id number]
[2024-04-08] MEDS: clopidogrel 300 mg Tablet PO (16:43)
--- NOTE | 2024-04-08 16:46 | P.HP_ITS ---
Providers/Chief Complaint 2 Primary Care Provider: Isis Villasenor MD Chief Complaint: stemi alert History of Present Illness Marry Chatman is a 78 year old female with PMH of PAD, CAD s/p CABG who started having chest pain about 2 hours prior to hosiptal presentation. It was severe with radiation to jaw. She is also hypotensive and bradycardic. There are dynamic EKG changes with transient borderline ST elevation in the lateral leads seen briefly. Not meeting stemi criteria. Review of Systems 2 Const: Denies: fever(s) or chills Card: Reports: chest pain Resp: Denies: dyspnea GI: Denies: abdominal pain : Denies: dysuria, urinary frequency or urinary urgency Musc: Denies: neck pain or back pain Skin/Breast: Denies: rash Medications/Allergies Home Medications Medication Instructions Recorded Confirmed Last Taken Type amlodipine 10 mg tablet 10 mg PO QAM 09/28/19 04/30/23 11/27/22 History aspirin 81 mg tablet,delayed 81 mg PO QPM 09/28/19 04/30/23 11/21/22 History release (Adult Aspirin Regimen) atorvastatin 80 mg tablet (Lipitor) 80 mg PO QPM 09/28/19 04/30/23 11/26/22 History bimatoprost 0.01 % eye drops 1 drop ophthalmic (eye) QDAY 09/28/19 04/30/23 11/27/22 History (Lumigan) clopidogrel 75 mg tablet (Plavix) 75 mg PO QPM 09/28/19 04/30/23 11/26/22 History pantoprazole 20 mg tablet,delayed 40 mg PO QPM 09/28/19 04/30/23 11/27/22 History release Fosamax 70 mg PO DIRECTED 07/06/20 04/30/23 11/25/22 History lisinopril 40 mg tablet 40 mg PO DAILY 08/09/20 04/30/23 11/27/22 07:00 History loteprednol etabonate 0.5 % eye 1 drp ophthalmic (eye) DAILY 08/09/20 04/30/23 11/27/22 History drops,suspension levothyroxine 125 mcg tablet 112 mcg PO QAM 08/23/20 04/30/23 11/27/22 07:00 History (Synthroid) prenat.vits,alcides,mem-djux-bchuf 1 tab PO DAILY 08/23/20 04/30/23 12/16/20 09:00 History triamterene 37.5 1 tab PO DAILY 08/23/20 04/30/23 11/27/22 History mg-hydrochlorothiazide 25 mg tablet isosorbide mononitrate 30 mg 30 mg PO QAM #90 tabs 10/22/21 04/30/23 11/27/22 07:00 Rx tablet,extended release 24 hr blood sugar diagnostic #400 ea 10/31/21 04/30/23 Unknown Rx nitroglycerin 0.4 mg sublingual 0.4 mg sublingual Q5M PRN chest 01/28/22 04/30/23 Unknown Rx tablet (Nitrostat) pain #25 tabs insulin lispro 100 unit/mL 100 unit SUBCUT DAILY #10 mL 02/11/23 04/30/23 Unknown Rx subcutaneous solution (Humalog U-100 Insulin) dulaglutide 1.5 mg/0.5 mL 1.5 mg (0.5 mL) SUBCUT .qweekly #8 04/03/23 04/30/23 Unknown Rx subcutaneous pen injector mL (Trulicity) ezetimibe 10 mg tablet (Zetia) 10 mg PO DAILY #90 tabs 04/03/23 04/30/23 Unknown Rx gabapentin 100 mg capsule 100 mg PO .qpm #90 caps 04/03/23 04/30/23 Unknown Rx insulin lispro 100 unit/mL See Rx Instructions .Route 04/03/23 04/30/23 Unknown Rx subcutaneous solution (Humalog .COMPLEX #30 mL U-100 Insulin) metformin 500 mg tablet 500 mg PO BID 90 days #180 tabs 04/03/23 04/30/23 Unknown Rx insulin pump controller (Omnipod #1 ea 04/13/23 04/30/23 Unknown Rx DASH PDM Kit (Gen 4)) insulin pump cart,cont inf,BT #10 ea 10/20/23 Unknown Rx (Omnipod Dash Pods (Gen 4) subcutaneous cartridge) Allergies Allergy/AdvReac Type Severity Reaction Status Date / Time codeine Allergy ALGY-Difficulty Verified 04/30/23 13:48 Breathing Opioids - Morphine Analogues Allergy ALGY-Hives Verified 04/30/23 13:48 Ehyzblf-LHU-XmO Reductase Allergy ALGY-Rash Verified 04/30/23 13:48 Inhibitor [Bmqktcb-Eic-Cjc Reductase Inhibitor] PFSH Acute 2 PFSH: Medical History Osteoporosis Atherosclerotic heart disease of [place] coronary artery without angina pectoris Hx of deep venous thrombosis Leg pain, bilateral Mixed hyperlipidemia Osteoarthritis, chronic Bilateral carotid artery stenosis Hypertension CAD (coronary artery disease) Peripheral vascular disease Diabetes mellitus Osteoarthritis of knees, bilateral Surgical History History of PTCA Hx of hysterectomy History of tonsillectomy History of repair of hiatal hernia H/O heart bypass surgery Family History Sister Anesthesia complication Grandmother Stroke Grandfather Stroke Other CAD (coronary artery disease) Dementia Diabetes Hyperlipidemia Hypertension Lung disease Thyroid disease Denies family history of Clotting disorder Bleeding disorder Cancer Social History Smoking and tobacco/nicotine status: never used tobacco/nicotine Alcohol intake: former Substance/Drug Use: never Vitals/I&O/Wt Last Vital Signs BP 56/38 04/08/24 16:19 04/08/24 04/08/24 04/08/24 06:59 14:59 22:59 Intake Total 2.733 / 2.733 Balance 2.733 / 2.733 Weight last 48 hrs Weight 115 lb Physical Exam 2 Narrative: GENERAL: Patient is drowsy NECK: No jugular vein distension. HEENT: No cyanosis. No icterus. No pallor. HEART: Regular S1 and S2. No murmur, rub or gallop. LUNGS: Diminished air entry bilaterally CENTRAL NERVOUS SYSTEM: Grossly nonfocal. EXTREMITIES: Lower extremities without edema bilaterally. Data 04/08/24 16:41 04/08/24 17:10 A&P Assessment and plan (1) Cardiogenic shock: (2) NSTEMI (non-ST elevated myocardial infarction): (3) Peripheral vascular disease: (4) Hypertension: Qualifiers: Hypertension type: essential hypertension Qualified Code(s): I10 - Essential (primary) hypertension (5) Bilateral carotid artery stenosis: (6) Mixed hyperlipidemia: (7) Atherosclerotic heart disease of [place] coronary artery without angina pectoris: Qualifiers: [place] vs. transplanted heart: [place] heart Qualified Code(s): I25.10 - Atherosclerotic heart disease of [place] coronary artery without angina pectoris Plan Patient has acute Non ST elevation [place] with dynamic EKG changes. Also has hypotension consistent with cardiogenic shock.Systolic pressure dropping into 50s. Has been started on levophed. Going emergently to cardiac laboratory helper. Prior anatomy noted. Had patent [place] lcx, svg to rca and svg to LAD. svg to OM was occluded. Given aspirin and plavix. Given heparin bolus Prognosis is guarded given acute [place] and cardiogenic shock. Attestations 2 Medical Necessity Statement*: Care expected to cross 2 midnights. Patient has presented with high risk NSTEMI and cardiogenic shock. Going emergently for coronary angigoram. Coding Level of Care Code Acute Code for Chg Fwd Diagnoses Cardiogenic shock R57.0 NSTEMI (non-ST elevated myocardial infarction) I21.4 Peripheral vascular disease I73.9 Essential hypertension I10 Hypertension type: essential hypertension Bilateral carotid artery stenosis I65.23 Mixed hyperlipidemia E78.2 Atherosclerosis of [place] coronary artery of [place] heart without angina pectoris I25.10 [place] vs. transplanted heart: [place] heart
[2024-04-08 16:48] LABS: Basophils % 0.4 %; Eosinophils # 0.1 10^3/uL (0.0-0.8); Eosinophils % 0.6 %; Hematocrit 27.3 % (36-47); Lymphocytes # 4.1 10^3/uL (0.8-4.8); Lymphocytes % 40.6 %; Mean Corpuscular HGB Conc 31.5 g/dL (30-55); Mean Corpuscular Hemoglobin 29.2 pg (27-33); Mean Corpuscular Volume 92.5 fl (85-98); Mean Platelet Volume 10.5 fL (7.4-10.4); Monocytes # 0.6 10^3/uL (0.2-0.9); Monocytes % 6.1 %; Neutrophils # 5.25 10^3/uL (1.8-7.7); Nucleated Red Blood Cells % 0 %; Platelet Count 274 10^3/cmm (157-399); Red Blood Count 2.95 10^6/uL (3.85-5.65); Red Cell Distribution Width 15.2 % (12.1-15.1)
[2024-04-08 17:28] VITALS: RESP 18
[2024-04-08 17:37] LABS: Troponin(5th) Baseline 50 ng/L (0-10)
[2024-04-08 17:42] LABS: Alanine Aminotransferase 27 U/L (0-33); Albumin Level 2.9 g/dL (3.5-5.2); Alkaline Phosphatase 90 U/L (35-105); Anion Gap 16.4 (5-19); Aspartate Amino Transferase 35 U/L (0-32); Blood Urea Nitrogen 19 mg/dL (8-23); Calcium 6.5 mg/dL (8.5-10.5); Carbon Dioxide 14 mmol/L (22-29); Chloride 112 mmol/L (98-107); Creatinine Clr Calc Pharmacy 39.8032; Globulin 1.8 g/dL (1.3-4.6); Glucose 275 mg/dL (65-115); Lipase 50 U/L (13-60); Magnesium 1.4 mg/dL (1.7-2.3); Osmolality Calculated 298 mOsm/kg (285-295); Potassium 4.4 mmol/L (3.5-5.1); Sodium 138 mmol/L (136-145); Total Bilirubin 0.2 mg/dL (0.15-1.2); Total Protein 4.7 g/dL (6.6-8.7)
[2024-04-08 18:05] LABS: ABG PCO2 43.7 mmHg (35-45); ABG PH Result 7.07 (7.35-7.45); Alveolar-Arterial Oxygen Gradi 5.1 mmHg (5-10); Arterial Blood Gas Hematocrit 30.6 % (37-47); Base Excess ABG -16.7 mmol/L (-2.0-2.0); Blood Gas Operator Identificat 2ALCI; Blood Gas Sample Type Arterial; Carboxyhemoglobin 0.5 %THgb (0.4-20.1); HCO3 ABG 12.6 mmol/L (22-26); Methemoglobin 1.2 % (0.4-1.5); Oxygen Device AMBU; Oxygen Saturation ABG 82.4; PO2 ABG 57.2 mmHg (80.0-100.0); Potassium Level - ABG 3.8 mmol/L (3.5-5.0)
--- NOTE | 2024-04-08 18:22 | P.PNCC_ITS ---
Critical Care Event Note The high probability of a clinically significant, sudden or life threatening deterioration of the patient's [cardiac] system(s) required my full and direct attention, intervention and personal management. The critical care time is as shown. This time is in addition to time spent performing any reported procedures but includes the following: [x] Data and vital sign review and interpretation [x] Patient assessment, examination and intervention [x] Documentation [x] Medication orders and management CODE PANCHO called in the Computer Repair Technician. Second CODE BLUE for the patient. Responded to the CODE BLUE. Reviewed labs. Found to have metabolic acidosis. Patient was already intubated. Found to have MOBILE APPLICATION ARCHITECT of the grafts. Patient underwent ACLS protocol for overall 20 minutes. Her rhythm during CPR remained asystole to PEA. She was treated with ACLS protocol epinephrine and sodium bicarb. Unfortunately even after receiving over 20 minutes of ACLS protocol CPR patient did not achieve ROSC and was declared at 1817. During the CPR family was kept updated by cardiology team. Critical Care Time Code activated: Yes Critical Care Time (min): 40 Additional information about critical care time: BEATRIZ DELEON, ACLS protocol CPR Coding Level of Care Code Critical Care
--- NOTE | 2024-04-08 19:50 | PC.NURSE ---
FIRST CODE BLUE; Patient in Shift Stacker in middle of procedure when patient became Bradycardiac. Code Blue called @1708 Epi @1708 Atropine @1708 CPR @1708 Pulse check @1710- Code stopped. Patient Intubated; 20 Etom IVP @1712 10 Vec IVP @1712 Patient intubated @1714 -with 8.0 ET. 23@Lip CCL proceeds with procedure. ICU bed arranged. SECOND CODE BLUE; (Patient Currently on 20mcg Levo gtt, and 20 Dopamine gtt Code Blue called @1757 CPR, Epi IVP, and Atropine IVP @1757 Pulse Check @1759 -SB, CPR resumed Epi IVP @1800 Pulse Check @1801-SB, CPR resumed Epi IVP @1803 Pulse Check @1803-Asystole, CPR resumed 150 Amio IVP @1804 Epi IVP @1806 Pulse Check @1806-Asystole, CPR resumed 150 Bicarb IVP @1807 Order/IVP 100 more of Bicarb @1808 Epi IVP @1809 Pulse Check @1809-PEA, CPR resumed Pulse Check @1812-PEA, CPR resumed Epi IVP @1813 Pulse Check @1814-PEA, CPR resumed Epi IVP @1816 Pulse Check @1817-PEA, CPR stopped @request of family TOD called @1817 [facility] and notified of patient passing. Patient currently a hold for [facility] review. Assistant Plant Controller released.
--- NOTE | 2024-04-08 20:00 | PC.NURSE ---
[facility].
--- NOTE | 2024-04-09 08:36 | PM.DDS ---
Discharge Providers DDS Date of Admission: 04/08/2024 Date Summary Completed: 04/10/24 Attending Provider at Admission: Milton Vazquez Time of : 18:17 Attending Provider at Discharge: Milton Vazquez MD Pronouncing Clinician: Milton Vazquez Primary Care Provider: MD KATHY Hernandez Diagnoses Probable Cause of Acute myocardial infarction Hospital Diagnoses (1) Cardiogenic shock: (2) NSTEMI (non-ST elevated myocardial infarction): (3) Peripheral vascular disease: (4) Hypertension: Qualifiers: Hypertension type: essential hypertension Qualified Code(s): I10 - Essential (primary) hypertension (5) Bilateral carotid artery stenosis: (6) Mixed hyperlipidemia: (7) Atherosclerotic heart disease of [place] coronary artery without angina pectoris: Qualifiers: [place] vs. transplanted heart: [place] heart Qualified Code(s): I25.10 - Atherosclerotic heart disease of [place] coronary artery without angina pectoris Reason for Visit Reason for Visit Chest pain/ cardiogenic shock Brief History: 78 year old woman who has prior history of CAD, PAD who presented with chest pain for 2 hours along with dynamic EKG changes consistent with acute [place] (high risk Non ST elevation [place]) and severe hypotension consistent with cardiogenic shock. Summary Date and Time of Date of : 04/08/24 Time of : 18:17 Summary Summary: Patient was emergently taken to laborer livestock. Was on pressor support. We started on dopamine in the laborer livestock in addition to levophed. High doses were needed. Once we obtained access in femoral artery, patient went into asystole. After brief CPR, patient attained ROSC. ER physician, Dr Martinez intubated patient. Coronary angiogram showed subtotal occlusion at anastamosis of SVG to RCA with heavy calcification. SVG to LAD was occluded. [place] Left circumflex artery has proximal stenosis but is patent with good flow. As svg to RCA anastamosis appeared culprit lesion, we were attempting to wire it when patient again went in to asystole/PEA. Several rounds of CPR were performed. Family decided to stop further CPR attempts after 20 minutes of CPR. Additional Data Confirmation of as documented by pronouncing clinician: no pulse, no respirations, no heart sounds and pupils fixed and dilated Family: contacted (Family was in laborer livestock waiting area.) Additional persons at bedside: nursing staff Was code activated?: Yes Hospice patient?: No Discharge Plan Discharge Patient Disposition: Clinical Impression: NSTEMI (non-ST elevated myocardial infarction), Cardiogenic shock Condition: Prescriptions: No Action amlodipine 10 mg tablet 10 mg PO QAM aspirin [Adult Aspirin Regimen] 81 mg tablet,delayed release (DR/EC) 81 mg PO QPM atorvastatin [Lipitor] 80 mg tablet 80 mg PO QPM Lumigan 0.01 % drops 1 drop ophthalmic (eye) QDAY clopidogrel [Plavix] 75 mg tablet 75 mg PO QPM pantoprazole 20 mg tablet,delayed release (DR/EC) 40 mg PO QPM levothyroxine [Synthroid] 125 mcg tablet 112 mcg PO QAM loteprednol etabonate 0.5 % drops,suspension 1 drp ophthalmic (eye) DAILY lisinopril 40 mg tablet 40 mg PO DAILY triamterene-hydrochlorothiazid 37.5-25 mg tablet 1 tab PO DAILY prenat.vits,alcides,cca-cana-zpeyw Tablet 1 tab PO DAILY insulin lispro [Humalog U-100 Insulin] 100 unit/mL solution 100 unit SUBCUT DAILY Qty: 10 2RF isosorbide mononitrate 30 mg tablet extended release 24 hr 30 mg PO QAM Qty: 90 1RF (DME) blood sugar diagnostic Strip See Rx Instructions .Route Qty: 400 3RF Rx Instructions: Check blood sugar 4 times a day. nitroglycerin [Nitrostat] 0.4 mg tablet, sublingual 0.4 mg sublingual Q5M PRN (Reason: chest pain) Qty: 25 1RF Rx Instructions: do not exceed 3 doses per episode ezetimibe [Zetia] 10 mg tablet 10 mg PO DAILY Qty: 90 4RF Rx Instructions: Take one tablet by mouth daily Trulicity 1.5 mg/0.5 mL pen injector 1.5 mg SUBCUT .qweekly Qty: 8 3RF Rx Instructions: Administer 1.5 mg subcut weekly. insulin lispro [Humalog U-100 Insulin] 100 unit/mL solution See Rx Instructions .ROUTE .COMPLEX Qty: 30 3RF Rx Instructions: Humalog for pump 100 units max dose; gabapentin 100 mg capsule 100 mg PO .qpm Qty: 90 3RF metformin 500 mg tablet 500 mg PO BID 90 Days Qty: 180 3RF Hold Instructions: Resume on 07/13/20. Will wait for the blood test report on 07/12/2020 and then decide (DME) Omnipod DASH PDM Kit (Gen 4) Misc See Rx Instructions .Route Qty: 1 0RF Rx Instructions: As directed (DME) Omnipod Dash Pods (Gen 4) Cartridge See Rx Instructions .Route Qty: 10 3RF Rx Instructions: As directed, change pod every 3 days Fosamax 70 mg tablet 70 mg PO DIRECTED Rx Instructions: mondays am Referrals: Isis Villasenor MD [Primary Care Provider] - DS Attestations Time Spent in /Discharge Care*: greater than 30 min Quality - AMI: AMI present?: Yes Quality - Stroke: CVA present?: No Quality - VTE: VTE present?: No Coding Level of Care Code Acute Code for Chg Fwd Diagnoses Cardiogenic shock R57.0 NSTEMI (non-ST elevated myocardial infarction) I21.4 Peripheral vascular disease I73.9 Essential hypertension I10 Hypertension type: essential hypertension Bilateral carotid artery stenosis I65.23 Mixed hyperlipidemia E78.2 Atherosclerosis of [place] coronary artery of [place] heart without angina pectoris I25.10 [place] vs. transplanted heart: [place] heart
--- NOTE | 2024-04-11 15:44 | P.PNCC_ITS ---
Critical Care Event Note CODE BLUE was called on the Vice President Biostatistics you responded and manage the airway. RSI induction done as below. Dr. Vazquez continued care for the code ROSC been achieved before I left the Vice President Biostatistics. Critical Care Time Code activated: No Critical Care Time (min): 0 Procedures Intubation Sedative: etomidate Mg given: 20 Paralytic: vecuronium Mg given: 10 Laryngoscope: fiber optic video scope ET tube size: 8 ET tube uncuffed: No Tube secured depth (cm): 22 Tube secured location: teeth Tube placement confirmation: visualized tube passing through cords, equal breath sounds bilaterally, no breath sounds over epigastrium, confirmation by capnometry and color change noted Patient tolerated procedure: well Intubation complications: none Coding Level of Care Code Acute Code for Chg Fwd
== END 2024-04-08 22:00 | disposition expired ==
PROVIDERS: Internal Medicine; Emergency Provider Family Medicine; PCP Internal Medicine
DX: I21.4 Non-ST elevation (NSTEMI) myocardial infarction (principal); R57.0 Cardiogenic shock; Z79.02 Long term (current) use of antithrombotics/antiplatelets; Z79.82 Long term (current) use of aspirin; Z79.85 Long-term (current) use of injectable non-insulin antidiabetic drugs; Z79.4 Long term (current) use of insulin; Z79.84 Long term (current) use of oral hypoglycemic drugs; I25.10 Atherosclerotic heart disease of native coronary artery without angina pectoris; E78.2 Mixed hyperlipidemia; E11.9 Type 2 diabetes mellitus without complications; I10 Essential (primary) hypertension
CPT/HCPCS: 31500; 36600; 80051; 80053; 82330; 82805; 83605; 83690; 83735; 84484; 85025; 87040; 92950; 93005; 93455; 94002; 96374; 96375; 99152; 99153; 99291; C1725; C1769; C1887; C1894; J1644; J2250; J2371; J2405; J2765; J3010; J7030; J7050; Q9967